=== PATIENT | male | born 1960 | race African-American/Black ===

== ENCOUNTER → 2018-03-30 06:44 | Outpatient (CLI) | payer BC, SELFPAY ==
--- NOTE | 2018-03-30 06:48 | CT_ITS ---
STUDY: CT CHEST WITHOUT CONTRAST REASON FOR EXAM: Male, 57 years old. Tobacco abuse. RADIATION DOSAGE (If Supplied By Facility): CTDIvol = ( 3.02 ) mGy, DLP = ( 108.72 ) mGycm TECHNIQUE: Transaxial imaging was performed without the administration of intravenous contrast material. Individualized dose optimization techniques were used for this CT. COMPARISON: None. FINDINGS: This is a limited low-dose screening exam. There is marked hyperexpansion of the lungs consistent with COPD. No infiltrates. No suspicious nodules. No effusions. Very limited evaluation of the soft tissues shows no gross acute abnormality. Negative appearance of the skeletal structures. CT/Chest without Contrast IMPRESSION: Screening exam shows COPD and no suspicious nodules or acute chest disease. Electronically Signed: Darius Moreno MD at 14:59 EDT , Service support ,
== END ==
PROVIDERS: Family Provider Internal Medicine; PCP Internal Medicine
DX: R63.4 Abnormal weight loss (principal); Z72.0 Tobacco use
CPT/HCPCS: 71250

== ENCOUNTER 2019-11-18 10:01 | Emergency (ER) | payer BC, SELFPAY ==
[2019-11-18 10:03] VITALS: BP 177/94; PULSE 80; RESP 17; TEMP 36.7; O2SAT 94; BMI 23.1
--- NOTE | 2019-11-18 10:18 | ED.DCSUM_ITS ---
- ER Visit Summary Date of Service: 11/18/19 Chief Complaint: Right lateral neck and posterior shoulder pain History of Present Illness: The patient is a 59 M history of diabetes but that he does not check nor take his medications. Patient states 2 weeks ago in the morning he woke up and had discomfort in his right lateral neck and posterior shoulder. He thinks is musculoskeletal. He thinks he slept on it awkwardly. He denies any injury or trauma. He denies any weakness or numbness. He is never had neck or back surgery. Pain is slightly worse with movement of his neck and shoulder. Physical Examination: Middle-aged male no acute distress vital signs stable afebrile. H EENT exam unremarkable. Smell of tobacco. Neck trachea midline no lymphadenopathy. Normal range of motion. His right paracervical soft tissue musculature is tender to palpation. As is his upper back the muscles between the thoracic spine and the shoulder blade. Lungs clear to auscultation. Heart regular rhythm no murmur. Abdomen soft and nontender. Extremities moving all 4. Neurovascular intact. 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 Normal radial pulse in the right wrist. Normal range of motion. Says a slightly increases his discomfort in his neck and upper back. Neurologically is awake and alert with no focal motor or sensory deficits. Test Results: bgt shows Emergency Department Course and Treatment: History and exam are consistent with muscle strain and spasm of his neck and trapezius. He does not need any imaging. There is been no trauma. He will be treated with p.o. Valium. Motrin. He and I discussed he needs to pay attention to his diabetes and take his medications as prescribed. He also needs to stop smoking. We will obtain a DVT. Treatment Plan: Valium 5 to 10 mg every 8 as needed neck and upper back pain. Motrin. Follow-up with his doctor. Stop smoking. Restart his diabetic meds. Disposition: Discharge Impression: Acute neck and upper back pain secondary to muscle strain and spasm Tobacco abuse Noncompliant with diabetic medications This note was generated with Media [employer] software. It may contain incorrect words, spelling, and punctuation that were not noted in review of the chart prior to signing ED Disposition - Plan for ED Patient: Referrals: Latanya Moon MD [Primary Care Provider] -
--- NOTE | 2019-11-18 10:22 | ED.DEP ---
ED Disposition - Plan for ED Patient: Disposition: Home or Assisted Living Instructions: Muscle Spasm Prescriptions: Diazepam [Valium] 5 mg PO Q6H PRN PRN #14 tab PRN Reason: Muscle Spasm Prescription Printed Referrals: Latanya Moon MD [Primary Care Provider] - 1 Week if not improving Additional Instructions: Valium 5 to 10 mg every 6 - 8 hours as needed for neck and back muscle spasm. Ice, warm bath and massage. Motrin for pain. Need to start taking care of your diabetes. Take your blood sugars at least once if not twice or more daily. Refill your diabetic meds. Need to stop smoking !!
[2019-11-18] MEDS: diazePAM 5 MG Tablet 10 MG PO (10:24)
[2019-11-18 10:31] VITALS: BP 155/87; PULSE 72; RESP 16; O2SAT 95
[2019-11-18 10:31] LABS: Bedside Glucose 238 mg/dL (70-110)
--- NOTE | 2019-11-18 10:31 | ED.RN ---
REVIEWED D/C INSTRUCTIONS, FOLLOW UP CARE, PRESCRIPTIONS, AND S/S THAT WOULD WARRANT A RETURN TO THE ED WITH PT. PT VERBALIZED AN UNDERSTANDING AND DENIES FURTHER QUESTIONS FOR THIS RN. PT SKIN WARM/DRY, RESP EVEN AND UNLABORED, PT A&O X 3, NO DISTRESS NOTED. PT AMBULATED OUT OF ED, GAIT STEADY.
== END 2019-11-18 10:33 | disposition home or self-care (01) ==
LOC: ED 10:26
PROVIDERS: Emergency Provider Emergency Medicine; PCP Internal Medicine; Referring Provider Internal Medicine
DX: S16.1XXA Strain of muscle, fascia and tendon at neck level, initial encounter (principal); M62.830 Muscle spasm of back; M54.2 Cervicalgia; M54.9 Dorsalgia, unspecified; E11.9 Type 2 diabetes mellitus without complications; Z72.0 Tobacco use; Z91.14 Patient's other noncompliance with medication regimen
CPT/HCPCS: 82962; 99283

== ENCOUNTER 2019-11-19 12:36 | Emergency (ER) | payer BC, SELFPAY ==
[2019-11-18 10:03] VITALS: BMI 23.1
[2019-11-19 12:39] VITALS: BP 173/98; PULSE 80; RESP 17; TEMP 36.8; O2SAT 97; BMI 23.7
--- NOTE | 2019-11-19 12:55 | ED.VIS.GEN ---
History of Present Illness Chief Complaint: Weakness Detail of Chief Complaint: Right-sided neck and shoulder pain Informant: Patient Onset: Days Context: Sudden Onset Timing: Continuous Quality: Pain Location: Right paracervical and shoulder Current Severity: Mild Maximum Severity: Moderate Worsened by: Movement Relieved by: Nothing Associated Symptoms: Denies paresthesia, anesthesia or motor weakness Narrative: Patient is a 59-year-old xhjzp-oyed-tjhnzjul male who presents with persistent pain. He was prescribed Valium and opiate analgesia. He was told by physician yesterday that if this did not work he could get a stronger muscle action. Patient was informed Valium is considered a good muscle accident. The other medicines are not good muscle actions and are not recommended for use in patients 55 years or older. He denies paresthesia, anesthesia or motor weakness. He denies fever, chills night sweats. He states he is not able to go to work. Prior similar symptoms: Yes Recent Illness/Hospitalization: Yes - Past Medical History (1) Type 2 diabetes mellitus Status: Acute Past Medical History - Allergies and Home Meds Allergies/Adverse Reactions: Allergies No Known Allergies Allergy (Verified 11/19/19 12:36) Primary Care Physician: Latanya Moon MD [Primary Care Provider] - Lives: Alone Smoking Status: Current every day smoker Alcohol: Rare Drugs: None Review of Systems General: Denies: Chills, Fever, Malaise, Sweats, Weight loss ENT: Denies: Bilateral ear pain, Rhinorrhea, Sore throat Cardiovascular: Denies: Chest pain, Palpitations Respiratory: Denies: Dyspnea, Cough, Dyspnea on exertion Gastrointestinal: Denies: Nausea, Vomiting Musculoskeletal: Reports: Neck pain, Extremity Pain. Denies: Myalgias, Arthralgias, Back pain, Swelling Skin: Denies: Rash, Wounds Neurological: Denies: Headache, Weakness, Parasthesia, Numbness Hematologic: Denies: Easy bruising, Easy bleeding Physical Exam Vital Signs/Narrative: Vital Signs Temp Pulse Resp BP Pulse Ox 11/19/19 12:39 98.2 F 80 17 173/98 H 97 Inital Vital Signs reviewed: Yes General: Well nourished, Well developed, No Acute Distress Head: Normocephalic, Atraumatic. Negative for: Trauma, Tenderness Eyes: Perrl, EOMI. Negative for: Pale conjunctiva ENT: Moist mucous membranes, No rhinorrhea, TM's clear Neck: Supple, No lymphadenopathy, No JVD, - - With rotation to the right and left. Worse to the right. Flexion also causes him discomfort. There is pain to palpation over the right paracervical region.. Negative for: Nontender Cardiovascular: Regular rate, Regular rhythm, No murmurs, Normal S1, Normal S2 Respiratory: No distress, CTA bilaterally Extremities: Nontender, No edema, - - Axillary, median, radial and ulnar function intact. Skin: Normal color, No rash, No Trauma. Negative for: Cyanosis, Diaphoresis, Jaundice Neurological: Alert, Oriented x3, Cranial nerves II-XII grossly intact, Normal Strength, Normal Sensation, Normal DTR - Bicep, brachialis and triceps reflex are 2+ and symmetric. Psychological: Depressed Diagnostic/Tx/Re-eval - Medical Decision Making Was informed the medication he was prescribed yesterday is appropriate for his diagnosis. There is nothing else to offer. Recommended ice. ED Disposition - Plan for ED Patient: Disposition: Home or Assisted Living Diagnosis: Neck and shoulder pain Instructions: NECK PAIN, No Trauma Referrals: Latanya Moon MD [Primary Care Provider] - 3-5 Days if not improving
[2019-11-19 15:00] LABS: Bedside Glucose 219 mg/dL (70-110)
== END 2019-11-19 13:15 | disposition home or self-care (01) ==
LOC: ED 13:10
PROVIDERS: Emergency Provider Emergency Medicine; PCP Internal Medicine
DX: M54.2 Cervicalgia (principal); M25.511 Pain in right shoulder; E11.9 Type 2 diabetes mellitus without complications; Z72.0 Tobacco use; Z79.84 Long term (current) use of oral hypoglycemic drugs
CPT/HCPCS: 82962; 99282

== ENCOUNTER 2019-11-29 15:10 | Emergency (ER) | payer BC, SELFPAY ==
[2019-11-29 15:11] VITALS: BP 175/108; PULSE 63; RESP 14; TEMP 36.8; O2SAT 93; BMI 23.3
--- NOTE | 2019-11-29 15:53 | ED.DCSUM_ITS ---
- ER Visit Summary Date of Service: 11/29/19 Chief Complaint: Atraumatic right posterior shoulder soft tissue discomfort. History of Present Illness: The patient is a 59 M past medical history of awz-vmorhyk-aimqkysnb diabetes. Patient states for about 2 weeks has had gradual onset of right posterior shoulder discomfort. No other symptoms. Was seen in emergency department started on Valium without significant relief. He denies any falls or trauma. He denies any chest pain or shortness of breath. N o fevers or chills. No weight loss. No weakness of his upper or lower extremities. No numbness. He is not been hospitalized nor he really had this before. Nothing particularly makes it better or worse other than turning his head. Physical Examination: Middle-aged male no acute distress vital signs are stable afebrile. H EENT exam unremarkable. Neck right trapezius tenderness between his spine and his shoulder blade. There is no ecchymosis or bruising. He has normal flexion-extension and rotation of his neck. Says it does increase his discomfort to rotate his neck to the right. There is no swelling or bruising. Lungs clear to auscultation bilaterally. Heart regular rhythm no murmur. Abdomen is soft nontender normal bowel sounds no peritoneal signs. Extremities moves all 4. Neurovascular intact. Normal venetian blind maker strength and dorsi and plantar flexion bilaterally. Test Results: noner Emergency Department Course and Treatment: Seems like musculoskeletal pain. He has no other symptoms or findings on exam that would make me want any testing at this time. No imaging. Treatment Plan: He will be started on Skelaxin. Motrin. Hot shower warm bath. Massage and follow-up. Disposition: Discharge Impression: Musculoskeletal neck pain This note was generated with [employer] dictation software. It may contain incorrect words, spelling, and punctuation that were not noted in review of the chart prior to signing ED Disposition - Plan for ED Patient: Referrals: Latanya Moon MD [Primary Care Provider] -
--- NOTE | 2019-11-29 15:57 | DCINST.ED_ITS ---
ED Disposition - Plan for ED Patient: Disposition: Home or Assisted Living Instructions: Neck Sprain/Strain Prescriptions: Metaxalone [Skelaxin] 800 mg PO 4X/DAY #20 tab Transmission Status: Pending to [facility] #30 Referrals: Latanya Moon MD [Primary Care Provider] - 1 Week if not improving Additional Instructions: Shower, warm bath, massage. Motrin for pain and inflammation. Skelaxin as a muscle relaxant. Follow-up with your doctor if not improving.
[2019-11-29 16:07] VITALS: RESP 18
== END 2019-11-29 16:20 | disposition home or self-care (01) ==
LOC: ED 16:16
PROVIDERS: Emergency Provider Emergency Medicine; PCP Internal Medicine
DX: M54.2 Cervicalgia (principal); E11.9 Type 2 diabetes mellitus without complications
CPT/HCPCS: 99282

== ENCOUNTER → 2019-12-05 04:51 | Outpatient (CLI) | payer BC, SELFPAY ==
[2019-11-29 15:11] VITALS: BMI 23.3
--- NOTE | 2019-12-05 05:06 | RAD_ITS ---
HISTORY: NKI C/O RT SIDED NECK PAIN WITH PAIN RADIATING INTO RT ARM X 3 WEEKS TECHNIQUE: Cervical spine 5 views Number of images including paperwork: 6 COMPARISON: None FINDINGS: VERTEBRAE: No acute fracture. VERTEBRAL ALIGNMENT: No traumatic subluxation. Straightening of the cervical spine. DISKS AND JOINTS: Minimal discogenic degenerative changes at C5-6 and C6-7. SOFT TISSUES: Unremarkable paraspinous soft tissues. RAD/Cerv Spine 4 or 5 Views IMPRESSION: 1. No acute osseous abnormality. 2. Loss of normal cervical lordosis may be related to positioning or muscle spasm. at 0550 Reported and signed by: Jazmín Levy MD Electronically Signed: Jazmín Levy MD at 5:50 EST Tel , Service support ,
== END ==
LOC: RAD 04:54
PROVIDERS: PCP Internal Medicine; Visit Provider Chiropractor
DX: S13.4XXA Sprain of ligaments of cervical spine, initial encounter (principal)
CPT/HCPCS: 72050

== ENCOUNTER 2020-09-21 07:13 | Emergency (ER) | payer BC, SELFPAY ==
[2020-09-21 07:14] VITALS: BP 177/95; PULSE 72; RESP 16; TEMP 36.3; O2SAT 98; BMI 22.4
--- NOTE | 2020-09-21 07:38 | ED.DCSUM_ITS ---
History of Present Illness Chief Complaint: Bite Informant: Patient Onset: Month(s) Maximum Severity: Mild Narrative: The patient presents complaining of a circular red irritated area to the right hip that has had for a month or two, he has history of diabetes is well controlled he has no other complaints, he eats indicates the area itches quite a bit, he has no history of MRSA skin infections or skin issues this is a single isolated area that has persisted, no trauma to the area, he has not seen his providers. He mentioned the above to a friend who told him he could have spiders growing under his skin he should be seen, he has no history of any exposure to any type of insect, he is otherwise health is been very good no other complaints again no trauma Past Medical History - Allergies and Home Meds Allergies/Adverse Reactions: Allergies No Known Allergies Allergy (Verified 09/21/20 07:16) Primary Care Physician: Latanya Moon MD [Primary Care Provider] - Past Medical History: - Smoking Status: Current every day smoker Review of Systems ROS: - Beatties is well controlled General: Denies: Chills, Fever, Sweats Eyes: Denies: Visual changes - bilaterally, Diplopia ENT: Denies: Rhinorrhea, Sore throat Cardiovascular: Denies: Chest pain, Palpitations Respiratory: Denies: Dyspnea, Cough, Dyspnea on exertion Gastrointestinal: Denies: Abdominal pain, Nausea, Vomiting, Diarrhea, Melena, Hematochezia Genitourinary: Denies: Dysuria, Hematuria, Frequency Musculoskeletal: Denies: Back pain, Extremity Pain Skin: Reports: Rash. Denies: Wounds Neurological: Denies: Headache, Weakness, Numbness Physical Exam Vital Signs/Narrative: Vital Signs Temp Pulse Resp BP Pulse Ox 09/21/20 07:14 97.4 F L 72 16 177/95 H 98 General: Well nourished, Well developed, No Acute Distress Head: Normocephalic, Atraumatic Eyes: Perrl, EOMI ENT: Moist mucous membranes, No rhinorrhea Neck: Supple, Nontender Cardiovascular: Regular rate, Regular rhythm, No murmurs Respiratory: No distress, CTA bilaterally, Chest nontender Abdomen: Soft, Nontender, Nondistended, Normal bowel sounds Back: Nontender, Normal Inspection Extremities: Nontender, No edema Skin: Normal color, - - To the area of the right hip he has a circular area that is 2 cm soft and flat not warm not fluctuant slightly red there is no signs of any obvious infection or acute issue he is walking around the emergency room without difficulty I do not notice any other skin lesions Neurological: Alert, Oriented x3, Cranial nerves II-XII grossly intact, Normal Strength, Normal Sensation Psychological: Normal affect, Normal Mood Diagnostic/Tx/Re-eval - Medical Decision Making I had a long conversation with the patient this area is itchy he has had it for a month or two, he began to be concerned when a friend told him that he could have spiders growing under his skin, he has had no exposures to any kind of insects, I explained this does not require I&D given all the above his physical exam the duration of be started on Bactrim Lotrisone cream he will follow-up with his providers in a few days and return for change in symptoms Home stable Final impression nonspecific pruritic skin lesion right lateral thigh 1 to 2- month ED Disposition - Plan for ED Patient: Diagnosis: Skin lesion of right leg Instructions: Cellulitis Prescriptions: Smz/Tmp Ds [Bactrim Ds] 1 tab PO BID #14 tab Prescription Printed Clotrimazole/Betamethasone [Lotrisone] 1 applic TOPICAL BID 14 Days #1 tube Prescription Printed Referrals: Latanya Moon MD [Primary Care Provider] -
[2020-09-21 07:40] VITALS: O2SAT 99
[2020-09-21] MEDS: Smz/Tmp Ds Tablet 1 TABLET PO (07:53)
[2020-09-21 07:56] VITALS: BP 155/75
== END 2020-09-21 07:56 | disposition home or self-care (01) ==
LOC: ED 07:46
PROVIDERS: Emergency Provider Emergency Medicine; PCP Internal Medicine
DX: L98.9 Disorder of the skin and subcutaneous tissue, unspecified (principal); F17.200 Nicotine dependence, unspecified, uncomplicated; E11.9 Type 2 diabetes mellitus without complications; Z79.84 Long term (current) use of oral hypoglycemic drugs
CPT/HCPCS: 99283

== ENCOUNTER 2020-12-31 07:31 | Day surgery (SDC) | payer BC, SELFPAY ==
[2020-12-31] VITALS (7 sets, daily range): BP systolic 113–152; BP diastolic 62–94; PULSE 59–88; RESP 16–18; TEMP 36.1–36.7; O2SAT 95–100; BMI 22.5
--- NOTE | 2020-12-31 07:30 | HP.PCM_ITS ---
History and Physical Date of Admission: 12/31/20 HISTORY AND PHYSICAL Edin Bedolla 1960 REFERRING PROVIDER: Barb Campos ([facility]), KENDELL CHIEF COMPLAINT: Colorectal cancer screening HPI: The patient is a 60 year old male referred for endoscopy. No family history of colon issues. The patient denies any change in bowel habits, weight changes, blood in stools, black tarry stools or abdominal pain. The patient notes no upper GI complaints. Edin has undergone prior endoscopy. The patient was seen by Dr. Vallejo for his first screening colonoscopy 07/29/11. The procedure report has been reviewed and findings as follows: Findings: Internal hemorrhoids were found, and they were small. The sigmoid colon was moderately tortuous. The exam was otherwise normal throughout the examined colon.There is no endoscopic evidence of polyps in the entire colon. I have reviewed the procedure with the patient. Dr. Vallejo recommended ten year screening. PAST MEDICAL HISTORY Internal hemorrhoids without mention of complication Type II or unspecified type diabetes mellitus without mention of complication, uncontrolled Unspecified essential hypertension Urinary calculus, unspecified Renal stones PAST SURGICAL HISTORY COLONOSCOP W/ OR W/O [facility] SPEC 07/29/11 FRAGMENTING/KIDNEY STONE 02/04/2005 Lithotripsy/also needed stint CURRENT MEDICATIONS atorvastatin (LIPITOR) 40 mg tablet Take 1 tablet by mouth once daily. metFORMIN ER (GLUCOPHAGE XR) 500 mg 24 hr tablet Take 4 tablets by mouth every morning. glimepiride (AMARYL) 4 mg tablet Take 1 tablet by mouth daily with breakfast. varenicline (CHANTIX aspirin, enteric coated (ADULT LOW DOSE ASPIRIN) 81 mg EC tablet losartan (COZAAR) 25 mg tablet Take 1 tablet by mouth once daily. ALLERGIES: Triamterene-Hydrochlorothiazid PERSONAL HISTORY: Tobacco Use Current Every Day Smoker Packs/day: 1.00 Types: Cigarettes Smokeless tobacco: Never Used Substance Use Topics Alcohol use: Yes Comment: beer at times Drug use: No FAMILY HISTORY: Hypertension Mother at age 56-stroke Cancer Father prostate/ at age 64 Stroke Maternal Aunt hypertension Stroke Maternal Aunt hypertension REVIEW OF SYMPTOMS: General - denies fevers, denies weight loss, denies anorexia, denies fatigue Cardiovascular - denies chest pain, denies heart palpitations, denies history of heart attack Pulmonary - denies shortness of breath, denies coughing up blood, denies breathing difficulties, denies chronic cough. Gastrointestinal - denies blood in stools, denies abdominal pain, denies chronic constipation, denies chronic diarrhea, denies acid indigestion/heartburn, denies swallowing problems, denies history of peptic ulcers Neurological - denies numbness/weakness of extremities, denies seizures, denies history of head trauma, denies history of stroke Genitourinary - denies blood in urine, denies burning with urination, denies history of kidney infections/failure, denies bladder problems, denies prostate problems Hematological - denies spontaneous/prolonged bleeding, denies history of blood transfusions, denies history of deep venous thromboses and/or pulmonary emboli, denies easy bruising Skin - denies nonhealing skin wounds, denies history of skin cancer, denies rashes Musculoskeletal - denies new or worsening muscle, joint or back pain. Endocrine - oral meds for diabetes Psychological ? denies anxiety or depression PHYSICAL EXAMINATION: General: The patient is 60 year old male, well nourished, well hydrated in no acute distress. The patient is oriented to time, place, and person. VITALS: Blood pressure 132/78, pulse 72, height 200.7 cm (6' 7), weight 80.4 kg (177 lb 3.2 oz), SpO2 95 %. HEENT: Normal cephalic, ataumatic, pupils are equally round, sclera are anicteric. Neck has no masses, asymmetry or lymphadenopathy. Respiratory: Clear to auscultation and percussion. Normal respiratory excursion and pattern. Cardiac: Examination is regular rate and rhythm. Normal S1/S2 Abdominal exam: Soft, nontender, with no palpable masses. No hepatosplenomegaly. No palpable hernias. Extremities: no clubbing, cyanosis or edema. IMPRESSION: Colorectal cancer screening PLAN: Will plan for lower endoscopy. We discussed the risks and benefits of the planned endoscopy. I have informed the patient that complications can occur including failure to complete the endoscopy and perforation. The patient had the opportunity to ask questions concerning the planned endoscopy. My staff has also explained the procedure to the patient in understandable terms and has given the patient printed material concerning the procedure. The patient freely consents to surgery. I plan to use NuLytely bowel preparation, per his request. I have explained that we may not be able to get it due to limited availability. We will plan for [facility]. This is due to the tortuous colon. The patient insists on [facility] due to transportation issues. Diagnoses: Colorectal cancer screening Paty Fermin RN RADIO NEWS WRITER.CHILD'S NURSE
[2020-12-31] MEDS: Lactated Ringers 1,000 ML 125 ML IV (08:07)
[2020-12-31 08:10] LABS: Bedside Glucose 120 mg/dL (70-110)
--- NOTE | 2020-12-31 09:00 | OP.CCLET_ITS ---
12/31/2020 Latanya Moon [address] [place] [address] Re : Colonoscopy procedure for Edin Bedolla Dear Dr. Moon This procedure was performed on Thursday, December 31, 2020. My impressions and recommendations are as follows: Impressions : - Non-bleeding internal hemorrhoids. - No specimens collected. Recommendations : - Repeat colonoscopy in 10 years for screening purposes. - Return to primary care physician PRN. - Continue present medications. My findings are described in the full procedure note, which is enclosed. If I can be of further assistance, please feel free to contact me at Doctor phone number(s): , Work: . Sincerely, MD Keri Welch MD 12/31/2020 8:59:54 AM This report has been signed electronically.
--- NOTE | 2020-12-31 09:00 | OP.COLON_ITS ---
Patient Name: Edin Bedolla Procedure Date: 12/31/2020 8:22 AM Date of : 1960 Age: 60 Procedure: Colonoscopy Indications: Screening for colorectal malignant neoplasm Providers: Keri Arguelles MD Referring MD: Latanya Moon Medicines: See the Anesthesia note for documentation of the administered medications Patient Profile: Refer to note in patient chart for documentation of history and physical. Last Colonoscopy: 2010. Complications: No immediate complications. Procedure: Pre-Anesthesia Assessment: - see anesthesia note After I obtained informed consent, the scope was passed under direct vision. Throughout the procedure, the patient's blood pressure, pulse, and oxygen saturations were monitored continuously. The pediatric colonoscope was introduced through the anus and advanced to the cecum, identified by the appendiceal orifice, IC valve and transillumination. The colonoscopy was performed without difficulty. The patient tolerated the procedure well. The quality of the bowel preparation was adequate. Scope In: 8:31:19 AM Scope Withdrawal Time 0 hours 9 minutes 32 seconds Scope Out: 8:55:35 AM Total Procedure Duration Time 0 hours 24 minutes 16 seconds Findings: The perianal and digital rectal examinations were normal. Non-bleeding internal hemorrhoids were found. Impression: - Non-bleeding internal hemorrhoids. - No specimens collected. Recommendation: - Repeat colonoscopy in 10 years for screening purposes. - Return to primary care physician PRN. - Continue present medications. Procedure Code(s): --- Professional --- G0121, Colorectal cancer screening; colonoscopy on individual not meeting criteria for high risk Diagnosis Code(s): --- Professional --- K64.8, Other hemorrhoids Z12.11, Encounter for screening for malignant neoplasm of colon CPT copyright 2017 [employer]. All rights reserved. The codes documented in this report are preliminary and upon professional fee coder review may be revised to meet current compliance requirements. MD Keri Welch MD 12/31/2020 8:59:54 AM This report has been signed electronically. Number of Addenda: 0 Note Initiated On: 12/31/2020 8:22 AM
== END 2020-12-31 09:38 | disposition home or self-care (01) ==
LOC: EN 07:34 → AC 07:34
PROVIDERS: PCP Internal Medicine; Referring Provider Internal Medicine; Visit Provider Surgery
PROC: 0DJD8ZZ Inspection of Lower Intestinal Tract, Via Natural or Artificial Opening Endoscopic (ICD-10-PCS; CPT 45378; principal; 2020-12-31 08:40)
DX: Z12.11 Encounter for screening for malignant neoplasm of colon (principal); Z20.828 Contact with and (suspected) exposure to other viral communicable diseases; K64.8 Other hemorrhoids; E11.9 Type 2 diabetes mellitus without complications; I10 Essential (primary) hypertension; Z79.84 Long term (current) use of oral hypoglycemic drugs; Z79.899 Other long term (current) drug therapy; F17.210 Nicotine dependence, cigarettes, uncomplicated
CPT/HCPCS: 45378; 82962; 87426; C9803; J7120

== ENCOUNTER 2021-07-21 10:36 | Inpatient (IN) | payer BC, SELFPAY ==
[2021-07-21] VITALS (16 sets, daily range): BP systolic 118–147; BP diastolic 63–79; PULSE 66–92; RESP 18–29; TEMP 36.5–37.2; O2SAT 86–96; BMI 23.3; BMI 21.6
--- NOTE | 2021-07-21 11:25 | EKG12_ITS ---
Test Reason : SOB Blood Pressure : / mmHG Vent. Rate : 085 BPM Atrial Rate : 085 BPM P-R Int : 170 ms QRS Dur : 080 ms QT Int : 340 ms P-R-T Axes : 063 062 042 degrees QTc Int : 404 ms Normal sinus rhythm Normal ECG Confirmed by MARIO HARDIN, NASREEN ([id number]), telegraph editor HOSSEIN KULKARNI ([id number]) on 07/27/2021 9:29:58 A M Referred By: AUGUST Confirmed By:RIGO MARTIN MD
--- NOTE | 2021-07-21 11:26 | EX.ED.DYSGE1 ---
HPI History of Present Illness Chief Complaint: Fever Narrative Narrative: 61-year-old male with history of diabetes and undiagnosed COPD presenting with shortness of breath and cough. He states he had a fever at the urgent care today. He was sent over here to the ER for a low pulse ox at 93%. Patient is stating that he has some chest tightness. He is a smoker. He states he has been told he has COPD before however he states this is not made a formal diagnosis. Patient is a smoker. He has been eating and drinking normally. He is making normal urine and stool. He does complain of a headache. Denies nausea or vomiting. No loss of taste or smell. PFSH PFSH Home Medications metformin 500 mg PO DAILY 11/18/19 [History Last Taken 2 Days Ago ~07/19/21] Allergy/AdvReac Type Severity Reaction Status Date / Time No Known Allergies Allergy Verified 07/21/21 10:37 Social History Smoking Status: Current every day smoker tobacco type: cigarettes ROS ROS ED Constitutional Constitutional ED: Reports chills and fever(s) Eyes Eyes: Denies blurry vision or diplopia ENT ENT ED: Denies rhinorrhea or sore throat Cardiovascular Cardiovascular: Reports chest pain; Denies palpitations Respiratory/Chest Respiratory/Chest: Reports cough and dyspnea Gastrointestinal Gastrointestinal: Denies abdominal pain, nausea or vomiting Genitourinary Genitourinary ED: Denies dysuria or hematuria Musculoskeletal Musculoskeletal: Reports myalgias; Denies back pain or neck pain Integumentary Denies Abrasions or rash Neurologic Neurologic: Reports headache(s); Denies paresthesias or weakness EXAM Physical Exam Const Vital Signs: 07/21/21 10:37 07/21/21 10:46 07/21/21 11:00 Temperature 98.6 F 98.6 F Temperature Source Temporal Temporal Pulse Rate 92 92 Respiratory Rate 18 18 Respiratory Effort Normal Non-Labored Respiratory Pattern Normal Blood Pressure 138/75 H 138/75 H Blood Pressure Mean 96 96 Pulse Ox 93 93 Oxygen Delivery Method Room Air Room Air Oxygen Flow Rate (L/min) 07/21/21 11:50 07/21/21 11:55 07/21/21 12:10 Temperature 97.7 F L Temperature Source Oral Pulse Rate 79 78 Respiratory Rate 24 H 20 H Respiratory Effort Respiratory Pattern Tachypnea Blood Pressure 118/75 Blood Pressure Mean 89 Pulse Ox 93 86 Oxygen Delivery Method Room Air Room Air Oxygen Flow Rate (L/min) 07/21/21 12:12 07/21/21 12:39 07/21/21 12:40 Temperature 97.8 F Temperature Source Oral Pulse Rate 78 Respiratory Rate 22 H 29 H Respiratory Effort Respiratory Pattern Blood Pressure 138/74 H Blood Pressure Mean 95 Pulse Ox 94 88 93 Oxygen Delivery Method Nasal Cannula Room Air Nasal Cannula Oxygen Flow Rate (L/min) 2 2 Positive well nourished General Appearance ED: NAD; Negative for pallor HEENT Reports moist mucous membranes Negative for trauma Eyes PERRL and EOMs intact bilaterally Chest Wall inspection of chest normal and palpation of chest normal Resp normal respiratory effort Auscultation: wheezes scattered wheezes Cardio regular rate GI normal to inspection, nondistended, normoactive bowel sounds Neuro oriented x3, CN's II-XII intact bilaterally and no sensory deficits noted Sensorium / Orientation: alert Motor Exam: strength 5/5 throughout Psych mental status grossly normal Skin General Skin Exam: Negative for jaundice or pallor MDM MDM MDM Narrative Medical decision making narrative: Patient presented with Covid symptoms and has had a low pulse ox at 92% at urgent care. Here he is 93%. He is wheezing on initial examination. He did test positive for COVID-19 in the ED today. Patient was given breathing treatments and Solu-Medrol and on reevaluation on room air the patient dropped to 86%. CBC shows no leukocytosis and patient is not lymphopenic. Renal function and electrolytes are normal. LFTs are normal. D-dimer negative. Lactic acid normal. Troponin is 6. Procalcitonin negative. EKG on my interpretation shows a normal sinus rhythm with a ventricular rate of 85 bpm. Chest x-ray on my interpretation shows no acute cardiopulmonary process and the radiologist does agree. Patient's vital signs have remained stable except for needing oxygen. Given the patient was on day 2 of symptoms and is already hypoxic I think he would benefit from inpatient treatment. Discussed with hospitalist for admission. Impression: 1. COVID-19 meningitis 2. Acute hypoxic respiratory failure Lab Data Attestation: I reviewed the patient's lab results. Labs: Laboratory Results - last 24 hr 07/21/21 07/21/21 07/21/21 10:54 10:54 10:54 WBC 5.4 RBC 4.83 Hgb 13.7 Hct 42.6 MCV 88.2 MCH 28.4 MCHC 32.2 RDW Std Deviation 45.8 H RDW Coeff of Abe 14.1 Plt Count 175 MPV 11.4 Immature Gran % (Auto) 0.400 Neut % (Auto) 58.5 Lymph % (Auto) 28.9 [place] % (Auto) 11.4 H Eos % (Auto) 0.2 Baso % (Auto) 0.6 Absolute Neuts (auto) 3.2 Absolute Lymphs (auto) 1.55 Nucleated RBC % 0 D-Dimer Quant (PE/DVT) Sodium 137 Potassium 3.6 Chloride 99 Carbon Dioxide 30.0 Anion Gap 8 BUN 7 Creatinine 1.06 Estim Creat Clear Calc 86.16 Est GFR (MDRD) Af Amer 92 Est GFR (MDRD) Non-Af 76 BUN/Creatinine Ratio 6.6 L Glucose 170 H Lactic Acid Calcium 8.3 L Total Bilirubin 0.30 AST 17 ALT 15 L Alkaline Phosphatase 80 Troponin I High Sens 6 Total Protein 7.7 Albumin 3.6 Globulin 4.1 Albumin/Globulin Ratio 0.9 Procalcitonin 0.09 07/21/21 07/21/21 11:36 11:36 WBC RBC Hgb Hct MCV MCH MCHC RDW Std Deviation RDW Coeff of Abe Plt Count MPV Immature Gran % (Auto) Neut % (Auto) Lymph % (Auto) [place] % (Auto) Eos % (Auto) Baso % (Auto) Absolute Neuts (auto) Absolute Lymphs (auto) Nucleated RBC % D-Dimer Quant (PE/DVT) 0.35 Sodium Potassium Chloride Carbon Dioxide Anion Gap BUN Creatinine Estim Creat Clear Calc Est GFR (MDRD) Af Amer Est GFR (MDRD) Non-Af BUN/Creatinine Ratio Glucose Lactic Acid 1.0 Calcium Total Bilirubin AST ALT Alkaline Phosphatase Troponin I High Sens Total Protein Albumin Globulin Albumin/Globulin Ratio Procalcitonin Radiography Diagnostic Testing: Radiology Impression Chest X-Ray 07/21/21 12:22 IMPRESSION: Stable, nonacute portable x-ray examination of the chest. Electronically Signed: Tim Cody MD ([place]) at 12:49 EDT , Service support , Discharge Plan Triage Chief Complaint: Fever ED Provider: Michael Cruz Dx/Rx/DC Orders Prescriptions: No Action metformin 500 MG tablet extended release 24 hr 500 mg PO DAILY RF: 0 Primary Care Provider: Latanya Moon
[2021-07-21] MEDS: Albuterol 2.5 MG/3 ML VIAL.NEB. INHALATION (11:33)
[2021-07-21] MEDS: Ipratropium/Albuterol Sulfate 3 ML AMPUL.NEB INHALATION (11:33)
[2021-07-21 11:35] LABS: Absolute Lymphocyte Count 1.55 X10^3/uL (0.83-4.51); Absolute Neutrophil Count 3.2 X10^3/uL (2.0-7.7); Basophil# 0.03 X10^3/uL; Basophil% 0.6 % (0-1); Eosinophil# 0.01 X10^3/uL; Eosinophils% 0.2 % (0-5); Hematocrit 42.6 % (40-54); Hemoglobin 13.7 g/dL (13.0-16.5); Lymphocyte # 1.55 X10^3/ul (0.83-4.51); Lymphocyte % 28.9 % (19-41); Mean Corp Hgb Conc 32.2 g/dL (32-36); Mean Corpuscular Hgb 28.4 pg (27.0-32.0); Mean Corpuscular Volume 88.2 fL (80-94); Mean Platelet Vol. 11.4 fl (6.2-12.0); Monocyte# 0.61 X10^3/uL; Monocyte% 11.4 % (0-10); NRBC Flagged by Analyzer 0 % (0-5); Neutrophil # 3.15 X10^3/uL (2.7-7.7); Neutrophil % 58.5 % (47-70); Platelet Count 175 K/mm3 (150-450); RBC Distribution Width CV 14.1 % (11.6-14.6); RBC Distribution Width SD 45.8 fl (35.1-43.9); Red Blood Count 4.83 M/mm3 (4.6-6.2); White Blood Count 5.4 K/mm3 (4.4-11.0)
[2021-07-21] MEDS: MethylPREDNISolone 125 MG/2 ML Vial IV (11:38)
[2021-07-21 11:49] LABS: ALB/GLOB Ratio 0.9 RATIO (0.9-2.4); AST(SGOT) 17 U/L (15-37); Alanine Aminotransfer ALT/SGPT 15 U/L (16-61); Albumin, Serum 3.6 g/dL (3.2-5.0); Alkaline Phosphatase 80 U/L (45-117); Anion Gap 8 (5-15); BUN 7 mg/dL (7-18); BUN/Creat Ratio 6.6 RATIO (10-20); Calcium,Total 8.3 mg/dL (8.5-10.1); Chloride 99 mmol/L (98-107); Creatinine, Serum 1.06 mg/dL (0.70-1.30); EST Glomerular Filtration Rate 76 mL/min (>60); Est Glom Filt Rate - Afr Amer 92 mL/min (>60); Estimated Creatinine Clearance 86.16 ml/min; Globulin 4.1 g/dL (2.2-4.2); Glucose 170 mg/dL (74-106); Potassium 3.6 mmol/L (3.5-5.1); Protein, Total 7.7 g/dL (6.4-8.2); Sodium Level 137 mmol/L (136-145); Troponin-I HS 6 pg/mL (3.0-78.0)
[2021-07-21] MEDS: Ondansetron 4 MG/2 ML Vial IV (11:50)
[2021-07-21 11:53] LABS: Procalcitonin 0.09 ng/mL (0.00-0.09)
[2021-07-21 11:55] LABS: D-Dimer Quantitative (DVT/PE) 0.35 FEU/ug/m (0.27-0.49)
--- NOTE | 2021-07-21 12:22 | RAD_ITS ---
STUDY: X-RAY CHEST REASON FOR EXAM: Male, 61 years old. cough TECHNIQUE: AP COMPARISON: 10/16/2012 FINDINGS: The lungs are clear and expanded. There is no demonstrated pleural abnormality. Normal size heart. Normal mediastinum and olga lidia. Normal visualized pulmonary arteries. Normal visualized aortic arch and descending thoracic aorta. Normal visualized thoracic spine. Normal visualized ribs, clavicles, and shoulders. There is no demonstrated abnormality of the visualized soft tissue structures of the upper abdomen. RAD/Chest 1 View (Portable) IMPRESSION: Stable, nonacute portable x-ray examination of the chest. Electronically Signed: Tim Cody MD ([place]) at 12:49 EDT , Service support ,
--- NOTE | 2021-07-21 12:33 | PCM.HP.STD ---
HPI - General HPI Narrative RONALD BURRELL, is a 61 M with a PMH as outlined who presents via the ED on 07/21/2021 with a complaint of shortness of breath and associated cough as well as fever and chest tightness. He went to the urgent care, where he was saturating at 92%. He was therefore sent to the ED. He doesnt have a known diagnosis of COPD, but says he was told he had COPD. He had associated wheezing and chest tightness. Patient has an extensive history of smoking. He is unvaccinated for COVID. He denies any loss of taste or smell. He tested positive for COVID. Labs and vitals showed wbc of 5.4, and Hb of 13.7, as well as platelets of 175. Chemistry was unremarkable, and D dimer wasnt elevated. CXR per my review showed acute cardiopulmonary process. He is being admitted to be managed for acute hypoxic respiratory failure due to COVID 19 infection and suspected COPD exacerbation. [facility] Home Medications metformin 500 mg PO DAILY 11/18/19 [History Last Taken Unknown] Allergy/AdvReac Type Severity Reaction Status Date / Time No Known Allergies Allergy Verified 07/21/21 10:37 Social History Smoking Status: Current every day smoker tobacco type: cigarettes Vital Signs Vital Signs Vital Signs: 07/21/21 10:37 07/21/21 10:46 07/21/21 11:00 Temperature 98.6 F 98.6 F Temperature Source Temporal Temporal Pulse Rate 92 92 Respiratory Rate 18 18 Respiratory Effort Normal Non-Labored Respiratory Pattern Normal Blood Pressure 138/75 H 138/75 H Blood Pressure Mean 96 96 Pulse Ox 93 93 Oxygen Delivery Method Room Air Room Air Oxygen Flow Rate (L/min) 07/21/21 11:50 07/21/21 11:55 07/21/21 12:10 Temperature 97.7 F L Temperature Source Oral Pulse Rate 79 78 Respiratory Rate 24 H 20 H Respiratory Effort Respiratory Pattern Tachypnea Blood Pressure 118/75 Blood Pressure Mean 89 Pulse Ox 93 86 Oxygen Delivery Method Room Air Room Air Oxygen Flow Rate (L/min) 07/21/21 12:12 Temperature Temperature Source Pulse Rate Respiratory Rate 22 H Respiratory Effort Respiratory Pattern Blood Pressure Blood Pressure Mean Pulse Ox 94 Oxygen Delivery Method Nasal Cannula Oxygen Flow Rate (L/min) 2 Weight Weight: 182 lb 5.156 oz Body Mass Index (BMI) 23.3 Physical Exam Const alert, oriented x3 and healthy appearing General Appearance: cooperative HEENT normocephalic, head/scalp atraumatic and hearing grossly normal bilaterally HEENT Narrative: dry oral mucosa. Eyes PERRL, EOMs intact bilaterally and conjunctivae normal Neck no lymphadenopathy, supple and no JVD Resp Resp Narrative: diminished breath sounds bibasally, no wheezes or crackles. On 2L of oxygen by nasal canula Cardio regular rate, regular rhythm, S1 normal heart sound, S2 normal heart sound and no murmurs GI normal to inspection, nondistended, normoactive bowel sounds, soft to palpation, non-tender and non-distended Extremity normal to inspection, full ROM and no clubbing, cyanosis or edema Peripheral Pulses: Yes pulses 2+ throughout Skin no rashes or lesions noted Neuro oriented x3, CN's II-XII intact bilaterally and moves all extremities Sensorium / Orientation: awake and alert Psych affect normal Results Lab / Micro Data Result Diagrams: 07/21/21 10:54 07/21/21 10:54 Labs: Laboratory Results - last 24 hr 07/21/21 10:54: WBC 5.4, RBC 4.83, Hgb 13.7, Hct 42.6, MCV 88.2, MCH 28.4, MCHC 32.2, RDW Std Deviation 45.8 H, RDW Coeff of Abe 14.1, Plt Count 175, MPV 11.4, Immature Gran % (Auto) 0.400, Neut % (Auto) 58.5, Lymph % (Auto) 28.9, [place] % (Auto) 11.4 H, Eos % (Auto) 0.2, Baso % (Auto) 0.6, Absolute Neuts (auto) 3.2, Absolute Lymphs (auto) 1.55, Nucleated RBC % 0 07/21/21 10:54: Sodium 137, Potassium 3.6, Chloride 99, Carbon Dioxide 30.0, Anion Gap 8, BUN 7, Creatinine 1.06, Estim Creat Clear Calc 86.16, Est GFR (MDRD) Af Amer 92, Est GFR (MDRD) Non-Af 76, BUN/Creatinine Ratio 6.6 L, Glucose 170 H, Calcium 8.3 L, Total Bilirubin 0.30, AST 17, ALT 15 L, Alkaline Phosphatase 80, Troponin I High Sens 6, Total Protein 7.7, Albumin 3.6, Globulin 4.1, Albumin/Globulin Ratio 0.9 07/21/21 10:54: Procalcitonin 0.09 07/21/21 11:36: D-Dimer Quant (PE/DVT) 0.35 07/21/21 11:36: Lactic Acid 1.0 Micro: Microbiology 07/21/21 10:54 Nasal Secretion SARS-CoV-2 Antigen (Rapid) - Final SARS-CoV-2 (COVID 19) Assessment & Plan Assessment/Plan (1) Acute respiratory failure with hypoxia: (2) COVID: PLAN: #Acute hypoxic respiratory failure due to COVID 19 pneumonia and probable COPD exacerbation Admit to [facility] with telemetry Titrate oxygen to maintain saturation above 90%. Breathing treatments with bronchodilators. D-dimer not elevated. IV Decadron 6 mg daily. Start on remdesivir. #COVID 19 pneumonia: as above #Type 2 diabetes mellitus On Metformin. Insulin sliding scale. Accu-Cheks AC at bedtime. CODE STATUS: Full code Patient counseled extensively about different types of CODE STATUS including full code, DNR CCA and DNR CCA. Patient elects to be full code. Total [id number] time 17 minutes. Charges/Coding Visit Charges Inpatient E&M: 58936 Init Hosp L3 Procedures Hospitalists Procedures: 30577 Advncd Care Plan 30 Min
--- NOTE | 2021-07-21 13:00 | NURSING ---
DR SOLANO IN WITH PATIENT
--- NOTE | 2021-07-21 13:47 | NURSING ---
MED SURG RUSS COVANIYAH 19, HYPOXIC, RESP FAILURE
[2021-07-21 15:22] LABS: Fibrinogen 372 mg/dl (203-444)
[2021-07-21 15:40] LABS: CPK Total, Creatine Kinase 206 U/L (39-308); LDH 209 U/L (87-241)
[2021-07-21 15:41] LABS: Bedside Glucose 229 mg/dL (70-110)
[2021-07-21] MEDS: 0.9% Saline Lock 10 ML Syringe IV ×2 (17:47→20:37)
[2021-07-21] MEDS: Insulin Lispro 100 UNIT/ML INSULN.PEN SC ×2 (17:48→20:36)
--- NOTE | 2021-07-21 18:33 | PCS.PANDOC ---
PANDEMIC DOCUMENTATION INITIATED: Date: 06/01/2021 Time: 190
[2021-07-21] MEDS: Enoxaparin 30 MG/0.3 ML Syringe SC (20:39)
[2021-07-21 20:56] LABS: Bedside Glucose 305 mg/dL (70-110)
[2021-07-22] VITALS (15 sets, daily range): BP systolic 140–148; BP diastolic 78–83; PULSE 59–80; RESP 18; TEMP 36.9–37.9; O2SAT 94–98
[2021-07-22 06:45] LABS: Bedside Glucose 127 mg/dL (70-110)
[2021-07-22 07:30] LABS: Absolute Lymphocyte Count 1.79 X10^3/uL (0.83-4.51); Absolute Neutrophil Count 3.3 X10^3/uL (2.0-7.7); Hematocrit 39.5 % (40-54); Hemoglobin 13.3 g/dL (13.0-16.5); Lymphocyte # 1.79 X10^3/ul (0.83-4.51); Lymphocyte % 32.5 % (19-41); Mean Corp Hgb Conc 33.7 g/dL (32-36); Mean Corpuscular Volume 86.2 fL (80-94); Mean Platelet Vol. 11.1 fl (6.2-12.0); Monocyte# 0.39 X10^3/uL; Monocyte% 7.1 % (0-10); NRBC Flagged by Analyzer 0 % (0-5); Neutrophil # 3.31 X10^3/uL (2.7-7.7); Platelet Count 157 K/mm3 (150-450); RBC Distribution Width CV 13.8 % (11.6-14.6); RBC Distribution Width SD 43.8 fl (35.1-43.9); Red Blood Count 4.58 M/mm3 (4.6-6.2); White Blood Count 5.5 K/mm3 (4.4-11.0)
[2021-07-22 07:56] LABS: ALB/GLOB Ratio 0.8 RATIO (0.9-2.4); AST(SGOT) 19 U/L (15-37); Alanine Aminotransfer ALT/SGPT 19 U/L (16-61); Albumin, Serum 3.2 g/dL (3.2-5.0); Alkaline Phosphatase 75 U/L (45-117); Anion Gap 6 (5-15); BUN 18 mg/dL (7-18); BUN/Creat Ratio 18.3 RATIO (10-20); Calcium,Total 8.6 mg/dL (8.5-10.1); Chloride 103 mmol/L (98-107); Creatinine, Serum 0.98 mg/dL (0.70-1.30); EST Glomerular Filtration Rate 83 mL/min (>60); Est Glom Filt Rate - Afr Amer 100 mL/min (>60); Estimated Creatinine Clearance 86.62 ml/min; Glucose 122 mg/dL (74-106); Potassium 3.5 mmol/L (3.5-5.1); Protein, Total 7.2 g/dL (6.4-8.2); Sodium Level 137 mmol/L (136-145)
[2021-07-22] MEDS: Enoxaparin 30 MG/0.3 ML Syringe SC ×2 (11:01→22:33)
[2021-07-22] MEDS: Acetaminophen 325 MG Tablet 650 MG PO (11:02)
[2021-07-22] MEDS: metFORMIN (XR) 500 MG Tablet PO (11:02)
[2021-07-22] MEDS: dexAMETHasone 10 MG/ML Vial 6 MG IV (11:03)
[2021-07-22] MEDS: Insulin Lispro 100 UNIT/ML INSULN.PEN SC ×3 (11:19→22:34)
--- NOTE | 2021-07-22 11:47 | PN.HOSP_ITS ---
Subjective Subjective Patient seen and examined. He feels much better today. He has no complaints. He does still look a bit weak. Review of systems is otherwise negative. He is on room air, though he is saturating 90-91% thereabouts. Objective Data Objective Data Vital Signs: Vital Signs Temp Pulse Resp BP Pulse Ox 100.2 F H 80 18 148/83 H 94 07/22/21 08:43 07/22/21 08:43 07/22/21 09:00 07/22/21 08:43 07/22/21 09:00 Oxygen Flow Rate (L/min) 3 Oxygen Delivery Method Room Air Weight: 168 lb 6.931 oz Body Mass Index (BMI) 21.6 Intake & Output: Intake and Output for Last 24 Hours 07/20/21 07/21/21 07/22/21 23:59 23:59 23:59 Intake Total 392.50 / 392.50 Output Total 400 / 400 Balance 392.50 / 392.50 -400 / -400 Lab / Micro Data Result Diagrams: 07/22/21 07:08 07/22/21 07:08 Labs: Laboratory Results - last 24 hr 07/21/21 10:54: Sodium 137, Potassium 3.6, Chloride 99, Carbon Dioxide 30.0, Anion Gap 8, BUN 7, Creatinine 1.06, Estim Creat Clear Calc 86.16, Est GFR (MDRD) Af Amer 92, Est GFR (MDRD) Non-Af 76, BUN/Creatinine Ratio 6.6 L, Glucose 170 H, Calcium 8.3 L, Total Bilirubin 0.30, AST 17, ALT 15 L, Alkaline Phosphatase 80, Troponin I High Sens 6, Total Protein 7.7, Albumin 3.6, Globulin 4.1, Albumin/Globulin Ratio 0.9 07/21/21 10:54: Procalcitonin 0.09 07/21/21 11:36: D-Dimer Quant (PE/DVT) 0.35 07/21/21 11:36: Lactic Acid 1.0 07/21/21 11:36: Fibrinogen 372 07/21/21 11:36: Lactate Dehydrogenase 209, Total Creatine Kinase 206, C-React Prot Ext Range 11.80 H 07/21/21 11:36: B-Natriuretic Peptide 19.0 07/21/21 15:35: POC Glucose 229 H 07/21/21 20:34: POC Glucose 305 H 07/22/21 06:37: POC Glucose 127 H 07/22/21 07:08: WBC 5.5, RBC 4.58 L, Hgb 13.3, Hct 39.5 L, MCV 86.2, MCH 29.0, MCHC 33.7, RDW Std Deviation 43.8, RDW Coeff of Abe 13.8, Plt Count 157, MPV 11.1, Immature Gran % (Auto) 0.400, Neut % (Auto) 60.0, Lymph % (Auto) 32.5, [place] % (Auto) 7.1, Eos % (Auto) 0.0, Baso % (Auto) 0.0, Absolute Neuts (auto) 3.3, Absolute Lymphs (auto) 1.79, Nucleated RBC % 0 07/22/21 07:08: Sodium 137, Potassium 3.5, Chloride 103, Carbon Dioxide 28.0, Anion Gap 6, BUN 18, Creatinine 0.98, Estim Creat Clear Calc 86.62, Est GFR (MDRD) Af Amer 100, Est GFR (MDRD) Non-Af 83, BUN/Creatinine Ratio 18.3, Glucose 122 H, Calcium 8.6, Total Bilirubin 0.30, AST 19, ALT 19, Alkaline Phosphatase 75, Total Protein 7.2, Albumin 3.2, Globulin 4.0, Albumin/Globulin Ratio 0.8 L Micro: Microbiology 07/21/21 10:54 Nasal Secretion SARS-CoV-2 Antigen (Rapid) - Final SARS-CoV-2 (COVID 19) Radiography Diagnostic Testing: Radiology Impression Chest X-Ray 07/21/21 12:22 IMPRESSION: Stable, nonacute portable x-ray examination of the chest. Electronically Signed: Tim Cody MD ([place]) at 12:49 EDT , Service support , Physical Exam Const alert, oriented x3, no apparent distress, average body habitus and healthy appearing General Appearance: cooperative Exam Limitations: no limitations HEENT normocephalic, head/scalp atraumatic and hearing grossly normal bilaterally Head and Scalp: normocephalic Eyes PERRL, EOMs intact bilaterally and conjunctivae normal Neck no lymphadenopathy, supple and no JVD Resp Resp Narrative: diminished breath sounds bibasally, no wheezes or crackles. On room air. Cardio regular rate, regular rhythm, S1 normal heart sound, S2 normal heart sound and no murmurs GI normal to inspection, nondistended, normoactive bowel sounds, soft to palpation, non-tender and non-distended Extremity normal to inspection, full ROM and no clubbing, cyanosis or edema Peripheral Pulses: Yes pulses 2+ throughout Skin no rashes or lesions noted Neuro oriented x3, CN's II-XII intact bilaterally and moves all extremities Sensorium / Orientation: awake and alert Psych affect normal Assessment & Plan Assessment/Plan (1) Acute respiratory failure with hypoxia: (2) COVID: PLAN: #Acute hypoxic respiratory failure due to COVID 19 pneumonia and probable COPD exacerbation * feels better today * on room air. Titrate oxygen to maintain sats >90% * continue IV decadron. Continue remdesivir * breathing treatment with bronchodilators * #Hypokalemia: resolved. #COVID 19 pneumonia: as above #Type 2 diabetes mellitus * On Metformin. Insulin sliding scale. Accu-Cheks AC at bedtime. * CODE STATUS: Full code * Charges/Coding Visit Charges Inpatient E&M: 93292 Subs Hosp L2
[2021-07-22 13:45] LABS: Bedside Glucose 197 mg/dL (70-110)
--- NOTE | 2021-07-22 17:07 | CASEMGMT ---
ALBIN ALVAREZ Assessment: Face to Face with pt for initial transition planning/care coordination assessment. ALBIN ALVAREZ introduced self and role at [facility], pt voices understanding and consents to assessment. Pt is A/O x4 and answers all questions appropriately at this time. Pt sitting up in bed on RA in no distress. Care providers, pharmacy, and demographics verified/updated. Admitting Dx: acute hypoxic resp failure due to COVID PCP: Sarai Specialists:Pt denies Preferred Pharmacy: [facility] Insurance: [place] Prescription Benefit: yes LW/HPOA: Pt states his dtr Yarely Bedolla is his DPOA and he has a LW. Pt is aware that it is not on file at [facility] and he may bring in to be scanned into pt chart. LNOK: Yarelydominic Bedolla, dtr; Marisela Child, friend Living Arrangements: Pt lives alone in a single story house with a couple of steps to enter with a rail. Pt reports being I in ADL's and denies concerns at home. Transportation: Pt drives self and denies concerns with transportation. DME/HHC/SNF: Pt denies having any DME in the home, previous HHC or SNF stays. Pt was first tested for COVID at [facility]. Pt does have family and friends who can provide him with groceries and supplies. 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 Pt drinks alcohol occasionally and smokes 1 pack of cigarettes per day. Denies any street drug or illegal drug use. Pt states no concerns with going home at time of dc. Pt states no further concerns/needs. CM to follow. Advised pt to ask CM if any further question/concerns/needs arise, voices understanding. Pt Goal: Home Plan: Home, will monitor for O2, pt on RA.
[2021-07-22 17:55] LABS: Bedside Glucose 292 mg/dL (70-110)
[2021-07-22] MEDS: 0.9% Saline Lock 10 ML Syringe IV (22:33)
[2021-07-22 23:21] LABS: Bedside Glucose 153 mg/dL (70-110)
[2021-07-23] VITALS (8 sets, daily range): BP systolic 131–145; BP diastolic 70–77; PULSE 65–84; RESP 18; TEMP 37.3–38.1; O2SAT 92–97
[2021-07-23 06:12] LABS: Absolute Lymphocyte Count 1.79 X10^3/uL (0.83-4.51); Absolute Neutrophil Count 2.8 X10^3/uL (2.0-7.7); Basophil# 0.01 X10^3/uL; Basophil% 0.2 % (0-1); Hematocrit 41.3 % (40-54); Hemoglobin 13.7 g/dL (13.0-16.5); Lymphocyte # 1.79 X10^3/ul (0.83-4.51); Lymphocyte % 36.5 % (19-41); Mean Corp Hgb Conc 33.2 g/dL (32-36); Mean Corpuscular Hgb 28.8 pg (27.0-32.0); Mean Corpuscular Volume 86.9 fL (80-94); Mean Platelet Vol. 11.9 fl (6.2-12.0); Monocyte# 0.27 X10^3/uL; Monocyte% 5.5 % (0-10); NRBC Flagged by Analyzer 0 % (0-5); Neutrophil # 2.83 X10^3/uL (2.7-7.7); Neutrophil % 57.6 % (47-70); Platelet Count 169 K/mm3 (150-450); RBC Distribution Width CV 13.9 % (11.6-14.6); RBC Distribution Width SD 44.8 fl (35.1-43.9); Red Blood Count 4.75 M/mm3 (4.6-6.2); White Blood Count 4.9 K/mm3 (4.4-11.0)
[2021-07-23] MEDS: Acetaminophen 325 MG Tablet 650 MG PO (06:36)
[2021-07-23 07:06] LABS: Bedside Glucose 113 mg/dL (70-110)
[2021-07-23] MEDS: Enoxaparin 30 MG/0.3 ML Syringe SC (08:54)
[2021-07-23] MEDS: metFORMIN (XR) 500 MG Tablet PO (09:00)
[2021-07-23] MEDS: dexAMETHasone 10 MG/ML Vial 6 MG IV (09:00)
--- NOTE | 2021-07-23 10:25 | PCM.DC.SUM ---
Providers Date of Admission: 07/21/21 Primary Care Physician: Dr. Latanya Moon MD Reason For Visit: ACUTE HYPOXIC RESPIRATORY FAILURE DUE TO COVID Diagnosis Discharge Diagnosis (1) Acute respiratory failure with hypoxia: Status: Acute Code(s): J96.01 - Acute respiratory failure with hypoxia (2) COVID: Status: Acute Code(s): U07.1 - COVID-19 Medications at Discharge Home Medications metformin 500 mg PO DAILY 11/18/19 dexamethasone 6 mg PO DAILY #8 tab 07/23/21 Hospital Course Operations None Procedures None Summary of Care Provided Minutes Spent on Discharge: 40 Hospital Course: RONALD BURRELL, is a 61 M with a PMH as outlined who presents via the ED on 07/21/2021 with a complaint of shortness of breath and associated cough as well as fever and chest tightness. He went to the urgent care, where he was saturating at 92%. He was therefore sent to the ED. He doesnt have a known diagnosis of COPD, but says he was told he had COPD. He had associated wheezing and chest tightness. Patient has an extensive history of smoking. He is unvaccinated for COVID. He denies any loss of taste or smell. He tested positive for COVID. Labs and vitals showed wbc of 5.4, and Hb of 13.7, as well as platelets of 175. Chemistry was unremarkable, and D dimer wasnt elevated. CXR per my review showed acute cardiopulmonary process. He is being admitted to be managed for acute hypoxic respiratory failure due to COVID 19 infection and suspected COPD exacerbation. He was started on remdesivir and decadron. His shortness of breath gradually improved and he felt much better. He was weaned off oxygen. He remained stable and was discharged home on 07/23/2021. He had a walking pulse ox which showed............ He was discharged on PO decadron 6mg daily x 8 days to complete a 10 day course. He is to remain in quarantine till 07/31/2021, to complete a 10 day course of quarantine since discharge. Patient seen and examined prior to discharge. He had no complaints and felt much better. Review of systems was otherwise negative. Labs and vitals reviewed. Home meds reviewed and reconciled. Physical Exam Const alert, oriented x3, no apparent distress, average body habitus and healthy appearing General Appearance: cooperative, comfortable and well kempt Exam Limitations: no limitations HEENT normocephalic, head/scalp atraumatic and hearing grossly normal bilaterally Eyes PERRL, EOMs intact bilaterally and conjunctivae normal Neck no lymphadenopathy, supple and no JVD Resp Resp Narrative: diminished breath sounds bibasally, no wheezes or crackles. On room air. Cardio regular rate, regular rhythm, S1 normal heart sound, S2 normal heart sound and no murmurs GI normal to inspection, nondistended, normoactive bowel sounds, soft to palpation, non-tender and non-distended Extremity normal to inspection, full ROM and no clubbing, cyanosis or edema Skin no rashes or lesions noted Neuro oriented x3, CN's II-XII intact bilaterally and moves all extremities Sensorium / Orientation: awake and alert Psych affect normal Medical Records Data Medical Nutrition Assessment Dietitian: Malnutrition Criteria Met Start: 07/22/21 16:51 Freq: Status: Active Protocol: Document 07/22/21 16:51 RMA (Rec: 07/22/21 16:51 RMA [id number]) Nutrition Malnutrition Evidence of Malnutrition Exists Yes Malnutrition (severe): Acute Illness/Injury Evidenced By Suboptimal Energy Intake ( Severe),Weight Loss (Severe) Clinical Problem Acute Disease or Injury Related Malnutrition Etiology Severe protein/calorie malnutrition related to inadequate oral intake and decreased appetite Signs/Symptoms as evidenced by 4-5% wt loss x past 1 week and PO meeting less than 50% estimated nutrition needs. Status Active Problem Recommendation Dietitian Recommendations/Changes Will liberalize diet to Carbohydrate-Controlled without caloric restriction. Will add 120ml glucerna shake TID w/ meals. Weight / BMI Weight Weight: 168 lb 6.931 oz Body Mass Index (BMI) 21.6 ABG / Lab / Microbiology Data Result Diagrams: 07/23/21 05:04 07/22/21 07:08 Laboratory: Laboratory Results - last 24 hr 07/22/21 11:18: POC Glucose 197 H 07/22/21 17:45: POC Glucose 292 H 07/22/21 22:29: POC Glucose 153 H 07/23/21 05:04: WBC 4.9, RBC 4.75, Hgb 13.7, Hct 41.3, MCV 86.9, MCH 28.8, MCHC 33.2, RDW Std Deviation 44.8 H, RDW Coeff of Abe 13.9, Plt Count 169, MPV 11.9, Immature Gran % (Auto) 0.200, Neut % (Auto) 57.6, Lymph % (Auto) 36.5, [place] % (Auto) 5.5, Eos % (Auto) 0.0, Baso % (Auto) 0.2, Absolute Neuts (auto) 2.8, Absolute Lymphs (auto) 1.79, Nucleated RBC % 0 07/23/21 06:31: POC Glucose 113 H Microbiology: Microbiology 07/21/21 10:54 Nasal Secretion SARS-CoV-2 Antigen (Rapid) - Final SARS-CoV-2 (COVID 19) D/C Instructions Discharge Diet: Low fat / Low cholesterol Discharge Activity: Return to Normal Activity Call your doctor if you observe: Fever of 101 or Higher, Shortness of breath, Dizziness, Swelling in the ankles, Chest pain and Increased palpitations (irregular heartbeat) Meaningful Use Info Meaningful Use Diagnoses (Choose all that apply): None applicable Discharge Plan Admission Admit Date/Time: 07/21/21 12:51 Primary Reason for Your Visit: covid 19 pneumonia Attending Provider: Ada Hernandez Primary Care Provider: Latanya Moon Instructions Patient Instructions: Coronavirus Disease 2019 (COVID-19): Overview Additional Instructions / Restrictions: remain in self isolation till 07/31/2021 Discharge Orders/Prescriptions Prescriptions: New dexamethasone 6 mg tablet 6 mg PO DAILY Qty: 8 RF: 0 Continued metformin 500 MG tablet extended release 24 hr 500 mg PO DAILY RF: 0 Referrals / Follow Up: Latanya Moon MD [Primary Care Provider] - Within 2 Weeks Disposition Disposition (needs filled in before D/C Order can be placed): Home, Self Care Charges/Coding Visit Charges Inpatient E&M: 39799 Disch Hosp
[2021-07-23] MEDS: Insulin Lispro 100 UNIT/ML INSULN.PEN SC (11:11)
[2021-07-23 11:36] LABS: Bedside Glucose 192 mg/dL (70-110)
--- NOTE | 2021-07-24 10:22 | CASEMGMT ---
ALBIN ALVAREZ Discharge Follow Up Phone Call: ASHLEERand: Jose Strata:1 Call Date: 07/24/21 Discharge Date: 07/23/21 Time of Call:1020 Duration:3 min Admitting Dx:acute hypoxic resp failure, COVID 19 ALBIN ALVAREZ completed follow up phone call after recent hospitalization. Pt states he is doing fair. Pt does not have a pulse ox, recommended he obtain one. Pt did not qualify for home O2. Pt was able to obtain his rx without difficulties. He has not yet made his fu appt with his PCP but will do so today. 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 Pt denies questions regarding his medications or dc instructions.
--- NOTE | 2021-07-24 10:32 | CASEMGMT ---
ALBIN ALVAREZ Assessment: Face to Face with pt for initial transition planning/care coordination assessment. RN ANTONIO introduced self and role at [facility], pt voices understanding and consents to assessment. Pt is A/O x4 and answers all questions appropriately at this time. Pt lying in bed in no distress. Care providers, pharmacy, and demographics verified/updated. Admitting Dx: acute colitis, positive cdiff PCP:[facility] Specialists:Pt denies. Preferred Pharmacy: [facility] Insurance: MMO Prescription Benefit: yes LW/HPOA: Pt denies having a LW/DPOA and denies need for info regarding AD. LNOK: Dhirajgala Tinoco, ; Eugene Cardenas Living Arrangements: Pt lives with in a single story duplex with 3 steps to enter with a rail. Pt reports she is I in ADL's and denies concerns at home. Transportation: Pt drives self and denies concerns with transportation. DME/HHC/SNF: Pt denies having any DME, hx of HHC or SNF stay. Pt states no concerns with going home at time of dc. Pt states no further concerns/needs. CM to follow. Advised pt to ask CM if any further question/concerns/needs arise, voices understanding. Pt Goal: Home Plan: Home
== END 2021-07-23 13:17 | disposition home or self-care (01) | DRG 177 ==
LOC: ED 11:50 → MS3 13:58
PROVIDERS: Admitting Provider Student in an Organized Health Care Education/Training Program; Emergency Provider Student in an Organized Health Care Education/Training Program; PCP Internal Medicine; Visit Provider Student in an Organized Health Care Education/Training Program
DX: U07.1 COVID-19 (principal); J96.01 Acute respiratory failure with hypoxia; J12.82 Pneumonia due to coronavirus disease 2019; E11.9 Type 2 diabetes mellitus without complications; J44.9 Chronic obstructive pulmonary disease, unspecified; F17.210 Nicotine dependence, cigarettes, uncomplicated; Z79.84 Long term (current) use of oral hypoglycemic drugs; Z28.3 Underimmunization status
CPT/HCPCS: 36415; 71045; 80053; 82550; 82962; 83605; 83615; 83880; 84145; 84484; 85025; 85379; 85384; 86140; 87426; 93005; 94640; 97161; 97165; 99285; 99406; J7050; A4216; J2405

== ENCOUNTER 2021-07-29 08:49 | Observation (INO) | payer BC, SELFPAY ==
[2021-07-29] VITALS (10 sets, daily range): BP systolic 127–142; BP diastolic 75–86; PULSE 66–78; RESP 12–25; TEMP 36.5–37; O2SAT 89–100; BMI 22.3
--- NOTE | 2021-07-29 09:24 | RAD_ITS ---
STUDY: X-RAY CHEST REASON FOR EXAM: Male, 61 years old. covid TECHNIQUE: Single AP portable view of the chest. COMPARISON: 07/21/2021 FINDINGS: Linear opacity in the mid left lung consistent with lingular discoid atelectasis. There is no demonstrated pleural abnormality. Normal size heart. Normal mediastinum and olga lidia. Normal visualized pulmonary arteries. Normal visualized aortic arch and descending thoracic aorta. Normal visualized thoracic spine. Normal visualized ribs, clavicles, and shoulders. There is no demonstrated abnormality of the visualized soft tissue structures of the upper abdomen. RAD/Chest 1 View (Portable) IMPRESSION: Lingular discoid atelectasis. Electronically Signed: Farhat Edmonds MD at 10:08 EDT Tel , Service support ,
--- NOTE | 2021-07-29 09:24 | EKG12_ITS ---
Test Reason : DIZZINESS Blood Pressure : / mmHG Vent. Rate : 071 BPM Atrial Rate : 071 BPM P-R Int : 158 ms QRS Dur : 082 ms QT Int : 398 ms P-R-T Axes : 061 063 027 degrees QTc Int : 432 ms Normal sinus rhythm Normal ECG Confirmed by PATRICIA HARDIN, JORY ([id number]), material expeditor HOSSEIN KULKARNI ([id number]) on 08/04/2021 6:30:11 AM Referred By: BUCKY Confirmed By:JORY GOMEZ MD
--- NOTE | 2021-07-29 09:26 | EDS_ITS ---
HPI History of Present Illness Chief Complaint: Shortness of Breath Informant: patient Onset/Context/Timing Onset: Days Context: Gradual Onset Timing: Continuous Current Severity: Mild Maximum Severity: Mild Narrative Narrative: 61-year-old male a week ago was diagnosed with COVID-19. Was hospitalized at this facility for 2 days. Says he was discharged home. Recently has been lightheaded and dizzy. Is also had nausea and vomiting. No diarrhea. No fever. Also mild shortness of breath. He denies any chest pain. He said the dizziness is worse with standing. He has had decreased oral intake. He does have a history of diabetes. Prior similar symptoms: Yes Recent Illness/Hospitalization: Yes PFSH PFS Medical History Alcohol abuse Diabetes Kidney stones Smoker Home Medications metformin 500 mg PO DAILY 11/18/19 [History Last Taken 2 Days Ago ~07/19/21] dexamethasone 6 mg PO DAILY #8 tab 07/23/21 [Rx Last Taken Unknown] Allergy/AdvReac Type Severity Reaction Status Date / Time No Known Allergies Allergy Verified 07/29/21 09:10 Social History Smoking Status: Current every day smoker tobacco type: cigarettes ROS ROS ED ROS Narrative Dizziness. Nausea and vomiting. Review of Systems ROS Unobtainable: Denies due to encephalopathy Constitutional Constitutional ED: Denies fever(s) Eyes Eyes: Denies change in vision ENT ENT ED: Denies ear pain Cardiovascular Cardiovascular: Denies chest pain Respiratory/Chest Respiratory/Chest: Reports cough and dyspnea Gastrointestinal Gastrointestinal: Reports nausea and vomiting; Denies abdominal pain or diarrhea Genitourinary Genitourinary ED: Denies dysuria Musculoskeletal Musculoskeletal: Denies myalgias Integumentary Denies rash Neurologic Neurologic: Denies headache(s) Psychiatric Psychiatric: Denies depression Endocrine Endocrinology: Denies polyuria Allergic/Immunologic Allergic/Immunologic ED: Denies urticaria EXAM Physical Exam Narrative Exam Narrative: 61-year-old male no acute distress. Pulse ox 96% on room air no hypoxia. He is afebrile at 98. He does not look septic or toxic. He does not look significantly dehydrated. HEENT exam unremarkable atraumatic. Moist mucous memories. Neck nontender no lymphadenopathy. Lungs clear to auscultation. Heart regular rhythm rate about 70 no murmur. Abdomen soft nontender. Patient moving all 4 extremities. Nontender no deformity. No edema. Neurologically is awake alert moving all 4 extremities. Const Vital Signs: 07/29/21 08:56 07/29/21 09:06 07/29/21 10:55 Temperature 98.2 F 98.2 F 98.4 F Temperature Source Oral Oral Oral Pulse Rate 74 72 68 Pulse Rate [Lying] 68 Pulse Rate [Sitting] 73 Pulse Rate [Standing] 78 Respiratory Rate 12 23 H 16 Respiratory Effort Normal Non-Labored Respiratory Depth Normal Respiratory Pattern Tachypnea Blood Pressure 132/79 H 134/77 H 137/76 H Blood Pressure [Lying] 137/76 H Blood Pressure [Sitting] 133/79 H Blood Pressure [Standing] 139/76 H Blood Pressure Mean 96 96 96 Blood Pressure Mean [Lying] 96 Blood Pressure Mean [Sitting] 97 Blood Pressure Mean [Standing] 97 Pulse Ox 96 98 98 Oxygen Delivery Method Room Air Nasal Cannula Nasal Cannula Oxygen Flow Rate (L/min) 2 2 07/29/21 11:21 Temperature Temperature Source Pulse Rate 66 Pulse Rate [Lying] Pulse Rate [Sitting] Pulse Rate [Standing] Respiratory Rate 22 H Respiratory Effort Respiratory Depth Respiratory Pattern Blood Pressure 142/86 H Blood Pressure [Lying] Blood Pressure [Sitting] Blood Pressure [Standing] Blood Pressure Mean 104 Blood Pressure Mean [Lying] Blood Pressure Mean [Sitting] Blood Pressure Mean [Standing] Pulse Ox 98 Oxygen Delivery Method Oxygen Flow Rate (L/min) Positive well nourished and well developed; Negative for obese, cachectic, contractures or unkempt General Appearance ED: well developed and NAD; Negative for unkempt, cachectic, contractures, cyanotic or diaphoretic Nutritional Appearance: Negative for cachectic or obese HEENT Reports moist mucous membranes Negative for trauma or tenderness Eyes PERRL and EOMs intact bilaterally Neck no lymphadenopathy, supple and no JVD General: Negative for tenderness Chest Wall inspection of chest normal and palpation of chest normal Resp normal respiratory effort and clear to auscultation bilaterally Effort and Inspection: Negative for pain with movement Auscultation: Negative for rales, rhonchi or wheezes Cardio regular rate, regular rhythm, S1 normal heart sound, S2 normal heart sound and no murmurs GI normal to inspection, nondistended, normoactive bowel sounds, non-tender, non- distended and no masses Inspection: Negative for abdominal distention Auscultation: normoactive bowel sounds Palpation: soft; Negative for tender, guarding or rebound tenderness present Back/Spine no CVA tenderness General Back: Negative for CVA tenderness Cervical Spine: Negative for cervical spine tenderness Extremity normal to inspection General Extremety ED: Negative for edema or tenderness General Extremity: Negative for edema Neuro oriented x3 and CN's II-XII intact bilaterally Sensorium / Orientation: alert; Negative for orientation impaired, lethargic or stuporous Motor Exam: strength 5/5 throughout Psych mental status grossly normal Appearance: Negative for unkempt Skin no rashes or lesions noted and no wounds MDM MDM MDM Narrative Medical decision making narrative: 61-year-old male complaining of generalized weakness, shortness of breath and nausea and vomiting after being diagnosed with Covid and hospitalized a week ago. To be treated with IV fluids and screening labs will be obtained. Repeat exam no change. Nurses attempted to walk patient he was too weak. I spoke to the hospitalist he will be admitted observation admission. I spoke to the monoclonal antibody center and they will work with the hospitalist to decide if he meets criteria for monoclonal antibody infusion. Lab Data Attestation: I reviewed the patient's lab results. Lab results narrative: CBC shows a white 11.3. Hemoglobin of 14.9. Electrolytes sodium 134. Gap of 10. BUN and creatinine of 18 and 1. Glucose of 193. Labs: Laboratory Results - last 24 hr 07/29/21 07/29/21 08:52 08:52 WBC 11.3 H RBC 5.22 Hgb 14.9 Hct 45.0 MCV 86.2 MCH 28.5 MCHC 33.1 RDW Std Deviation 42.3 RDW Coeff of Abe 13.4 Plt Count 194 MPV 11.9 Immature Gran % (Auto) 1.500 H Neut % (Auto) 56.2 Lymph % (Auto) 37.4 [place] % (Auto) 4.6 Eos % (Auto) 0.0 Baso % (Auto) 0.3 Absolute Neuts (auto) 6.3 Absolute Lymphs (auto) 4.22 Nucleated RBC % 0 Differential Comment SCANNED Reactive Lymphocytes 2+ Sodium 134 L Potassium 3.8 Chloride 94 L Carbon Dioxide 30.0 Anion Gap 10 BUN 18 Creatinine 1.04 Estim Creat Clear Calc 84.29 Est GFR (MDRD) Af Amer 94 Est GFR (MDRD) Non-Af 77 BUN/Creatinine Ratio 17.3 Glucose 193 H Calcium 8.8 Radiography Chest X-Ray - ED: 1 View, Read by ED Physician, Unchanged, Heart, Lungs, Mediastinum, Bony Structures and No Acute Disease Diagnostic Testing: Clinical Impression(s) from Imaging Studies Chest X-Ray 07/29/21 09:24 IMPRESSION: Lingular discoid atelectasis. Electronically Signed: Farhat Edmonds MD at 10:08 EDT Tel , Service support , Rhythm Strip Rhythm Strip: Sinus Rhythm Rate: 71 Ectopy: None EKG Initial EKG: Attestation: I personally reviewed and interpreted this EKG as follows: Interpretation: Sinus Rhythm and No Acute Injury Pattern Comments: Normal sinus rhythm rate of 71 no acute signs of FL or ischemia unchanged from a recent EKG from July 21. Discharge Plan Dx/Rx/DC Orders Clinical Impression: COVID, Adult failure to thrive, Generalized weakness Disposition Disposition: Acute Care Hospital [facility]
[2021-07-29 09:38] LABS: Absolute Lymphocyte Count 4.22 X10^3/uL (0.83-4.51); Absolute Neutrophil Count 6.3 X10^3/uL (2.0-7.7); Basophil# 0.03 X10^3/uL; Basophil% 0.3 % (0-1); Hemoglobin 14.9 g/dL (13.0-16.5); Lymphocyte # 4.22 X10^3/ul (0.83-4.51); Lymphocyte % 37.4 % (19-41); Mean Corp Hgb Conc 33.1 g/dL (32-36); Mean Corpuscular Hgb 28.5 pg (27.0-32.0); Mean Corpuscular Volume 86.2 fL (80-94); Mean Platelet Vol. 11.9 fl (6.2-12.0); Monocyte# 0.52 X10^3/uL; Monocyte% 4.6 % (0-10); NRBC Flagged by Analyzer 0 % (0-5); Neutrophil # 6.34 X10^3/uL (2.7-7.7); Neutrophil % 56.2 % (47-70); POSITIVE MORPHOLOGY YES; Platelet Count 194 K/mm3 (150-450); RBC Distribution Width CV 13.4 % (11.6-14.6); RBC Distribution Width SD 42.3 fl (35.1-43.9); Red Blood Count 5.22 M/mm3 (4.6-6.2); White Blood Count 11.3 K/mm3 (4.4-11.0)
[2021-07-29 09:42] LABS: Differential Indicated SCAN CRITERIA MET
[2021-07-29] MEDS: 0.9% Normal Saline 1,000 ML 999 ML IV (09:47)
[2021-07-29 09:48] LABS: Anion Gap 10 (5-15); BUN 18 mg/dL (7-18); BUN/Creat Ratio 17.3 RATIO (10-20); Calcium,Total 8.8 mg/dL (8.5-10.1); Chloride 94 mmol/L (98-107); Creatinine, Serum 1.04 mg/dL (0.70-1.30); EST Glomerular Filtration Rate 77 mL/min (>60); Est Glom Filt Rate - Afr Amer 94 mL/min (>60); Estimated Creatinine Clearance 84.29 ml/min; Glucose 193 mg/dL (74-106); Potassium 3.8 mmol/L (3.5-5.1); Sodium Level 134 mmol/L (136-145)
[2021-07-29 10:13] LABS: Differential Comment SCANNED; Reactive Lymphocyte 2+
--- NOTE | 2021-07-29 11:46 | NURSING ---
DR DE LA ROSA FOR DR STOVALL
--- NOTE | 2021-07-29 12:40 | NURSING ---
323 OBS RJ FUCHS, FAILURE TO THRIVE
--- NOTE | 2021-07-29 14:03 | HP.PCM.HOS_ITS ---
HPI - General General Date of Admission: 07/29/21 HPI Narrative RONALD BURRELL, is a 61 M who presents from home with worsening weakness and failure to thrive. He was diagnosed with Covid on 07/21/2021 and symptoms had started 07/19/2021. He was admitted for 2 days last week and did not require any oxygen on discharge was given a few days of remdesivir and discharged on Decadron. Presents with worsening lightheadedness and dizziness, he is also had some nausea as well as vomiting but no diarrhea. He has mild shortness of breath and on his previous admission it was felt that he likely has a history of COPD that is been undiagnosed. [facility] Medical History (Updated 07/29/21 @ 15:31 by Laura Zamora) Alcohol abuse Diabetes Kidney stones Smoker Substance abuse Home Medications metformin 500 mg PO DAILY 11/18/19 [History Last Taken 2 Days Ago ~07/19/21] dexamethasone 6 mg PO DAILY #8 tab 07/23/21 [Rx Last Taken Unknown] Allergy/AdvReac Type Severity Reaction Status Date / Time No Known Allergies Allergy Verified 07/29/21 09:10 Family History Other Cancer Surgical History no surgical history no surgical history Social History Smoking Status: Former smoker ROS Constitutional Constitutional: Denies chills, fatigue, fever(s) or malaise Eyes Eyes: Denies blurry vision ENT HEENT: Denies headache(s) or nasal discharge Cardiovascular Cardiovascular: Reports dizziness and lightheadedness; Denies chest pain, dyspnea on exertion or syncope Respiratory/Chest Respiratory/Chest: Reports cough; Denies shortness of breath at rest or shortness of breath with exertion Gastrointestinal Gastrointestinal: Reports nausea and vomiting; Denies constipation or diarrhea Genitourinary Genitourinary: Denies dysuria Neurologic Neurologic: Denies focal weakness, numbness or tremor(s) Psychiatric Psychiatric: Denies anxiety or depression Vital Signs Vital Signs Vital Signs: 07/29/21 08:56 07/29/21 09:06 07/29/21 10:55 Temperature 98.2 F 98.2 F 98.4 F Temperature Source Oral Oral Oral Pulse Rate 74 72 68 Pulse Rate [Lying] 68 Pulse Rate [Sitting] 73 Pulse Rate [Standing] 78 Respiratory Rate 12 23 H 16 Respiratory Effort Normal Non-Labored Respiratory Depth Normal Respiratory Pattern Tachypnea Blood Pressure 132/79 H 134/77 H 137/76 H Blood Pressure [Lying] 137/76 H Blood Pressure [Sitting] 133/79 H Blood Pressure [Standing] 139/76 H Blood Pressure Mean 96 96 96 Blood Pressure Mean [Lying] 96 Blood Pressure Mean [Sitting] 97 Blood Pressure Mean [Standing] 97 Pulse Ox 96 98 98 Oxygen Delivery Method Room Air Nasal Cannula Nasal Cannula Oxygen Flow Rate (L/min) 2 2 07/29/21 11:21 07/29/21 12:10 07/29/21 13:36 Temperature 97.8 F Temperature Source Temporal Pulse Rate 66 67 70 Pulse Rate [Lying] Pulse Rate [Sitting] Pulse Rate [Standing] Respiratory Rate 22 H 16 25 H Respiratory Effort Respiratory Depth Respiratory Pattern Blood Pressure 142/86 H 141/76 H 137/81 H Blood Pressure [Lying] Blood Pressure [Sitting] Blood Pressure [Standing] Blood Pressure Mean 104 97 99 Blood Pressure Mean [Lying] Blood Pressure Mean [Sitting] Blood Pressure Mean [Standing] Pulse Ox 98 100 98 Oxygen Delivery Method Nasal Cannula Oxygen Flow Rate (L/min) 2 Weight Weight: 173 lb 15.115 oz Body Mass Index (BMI) 22.3 Physical Exam Const alert, oriented x3 and no apparent distress General Appearance: cooperative HEENT normocephalic and moist oral mucous membranes Eyes PERRL, EOMs intact bilaterally and conjunctivae normal Neck supple and no JVD Resp normal respiratory effort, No normal air movement, no retractions and no use of accessory muscles Auscultation: diminished lung sounds; Negative for crackles, rales, rhonchi or wheezes Cardio regular rate, regular rhythm, S1 normal heart sound, S2 normal heart sound and no murmurs GI soft to palpation, non-tender and non-distended; Negative for hepatosplenomegaly Extremity no clubbing, cyanosis or edema Skin no rashes or lesions noted Neuro no focal motor deficits and no sensory deficits noted Psych Mood & Affect: flat affect Results Lab / Micro Data Result Diagrams: 07/29/21 08:52 07/29/21 08:52 Labs: Laboratory Results - last 24 hr 07/29/21 08:52: WBC 11.3 H, RBC 5.22, Hgb 14.9, Hct 45.0, MCV 86.2, MCH 28.5, MCHC 33.1, RDW Std Deviation 42.3, RDW Coeff of Abe 13.4, Plt Count 194, MPV 11.9, Immature Gran % (Auto) 1.500 H, Neut % (Auto) 56.2, Lymph % (Auto) 37.4, [place] % (Auto) 4.6, Eos % (Auto) 0.0, Baso % (Auto) 0.3, Absolute Neuts (auto) 6.3, Absolute Lymphs (auto) 4.22, Nucleated RBC % 0, Differential Comment SCANNED, Reactive Lymphocytes 2+ 07/29/21 08:52: Sodium 134 L, Potassium 3.8, Chloride 94 L, Carbon Dioxide 30.0, Anion Gap 10, BUN 18, Creatinine 1.04, Estim Creat Clear Calc 84.29, Est GFR (MDRD) Af Amer 94, Est GFR (MDRD) Non-Af 77, BUN/Creatinine Ratio 17.3, Glucose 193 H, Calcium 8.8 Rhythm Strip Rhythm Strip: Sinus Rhythm Rate: 71 Ectopy: None Radiology Impression Chest X-Ray 07/29/21 09:24 IMPRESSION: Lingular discoid atelectasis. Electronically Signed: Farhat Edmonds MD at 10:08 EDT Tel , Service support , Assessment & Plan Assessment/Plan (1) Adult failure to thrive: (2) COVID: (3) Generalized weakness: PLAN: 1. Generalized weakness and adult failure to thrive secondary to COVID- 19/possible COPD exacerbation -Chest x-ray is unremarkable does not demonstrate a pneumonia -He was 89% on room air in ER and was placed on 2 L nasal cannula for comfort -Unfortunately because his oxygen saturation is below 94% he qualifies as severe Covid therefore does not qualify for the monoclonal antibody infusion -Continue with 2 more days of Decadron -We will place him on duo nebs -He will need to follow-up with pulmonology as an outpatient after discharge for pulmonary function testing -On his previous admission D-dimer was normal, denies any chest pain -He received 2 days worth of remdesivir previously, will not restart remdesivir -We will place him on Zofran to encourage improved p.o. intake 2. DM2 -We will place him on sliding scale insulin and make adjustments as necessary -Accu-Cheks AC at bedtime -Hold Metformin DVT: Lovenox Charges/Coding Visit Charges OBSV E&M: 68651 Initial observation care L3
[2021-07-29] MEDS: Ipratropium/Albuterol Sulfate 3 ML AMPUL.NEB INHALATION ×2 (15:35→19:50)
[2021-07-29 16:16] LABS: Bedside Glucose 282 mg/dL (70-110)
[2021-07-29] MEDS: dexAMETHasone 4 MG Tablet 6 MG PO (17:10)
[2021-07-29] MEDS: Insulin Lispro 100 UNIT/ML INSULN.PEN SC ×2 (17:12→21:52)
[2021-07-29] MEDS: Ondansetron 4 MG/2 ML Vial IV (17:14)
[2021-07-29] MEDS: 0.9% Saline Lock 10 ML Syringe IV (17:14)
[2021-07-29 22:11] LABS: Bedside Glucose 348 mg/dL (70-110)
[2021-07-30] VITALS (9 sets, daily range): BP systolic 125–147; BP diastolic 58–76; PULSE 65–76; RESP 16–21; TEMP 35.9–36.7; O2SAT 92–95
[2021-07-30] MEDS: Insulin Lispro 100 UNIT/ML INSULN.PEN SC ×4 (06:15→21:30)
[2021-07-30 06:30] LABS: Bedside Glucose 319 mg/dL (70-110)
[2021-07-30] MEDS: Ipratropium/Albuterol Sulfate 3 ML AMPUL.NEB INHALATION ×4 (07:30→19:17)
[2021-07-30 07:47] LABS: Absolute Lymphocyte Count 1.23 X10^3/uL (0.83-4.51); Absolute Neutrophil Count 3.7 X10^3/uL (2.0-7.7); Basophil# 0.01 X10^3/uL; Basophil% 0.2 % (0-1); Hematocrit 44.4 % (40-54); Hemoglobin 14.7 g/dL (13.0-16.5); Lymphocyte # 1.23 X10^3/ul (0.83-4.51); Lymphocyte % 23.7 % (19-41); Mean Corp Hgb Conc 33.1 g/dL (32-36); Mean Corpuscular Hgb 28.5 pg (27.0-32.0); Mean Corpuscular Volume 86.2 fL (80-94); Mean Platelet Vol. 11.6 fl (6.2-12.0); Monocyte# 0.13 X10^3/uL; Monocyte% 2.5 % (0-10); NRBC Flagged by Analyzer 0 % (0-5); Neutrophil # 3.73 X10^3/uL (2.7-7.7); Neutrophil % 72.1 % (47-70); POSITIVE MORPHOLOGY YES; Platelet Count 196 K/mm3 (150-450); RBC Distribution Width CV 13.4 % (11.6-14.6); RBC Distribution Width SD 41.8 fl (35.1-43.9); Red Blood Count 5.15 M/mm3 (4.6-6.2); White Blood Count 5.2 K/mm3 (4.4-11.0)
[2021-07-30 07:50] LABS: Differential Indicated SCAN CRITERIA MET
--- NOTE | 2021-07-30 08:02 | PCS.PANDOC ---
PANDEMIC DOCUMENTATION INITIATED: Date: 06/01/2021 Time: 190
--- NOTE | 2021-07-30 08:03 | CASEMGMT ---
Social Work Note Per community youth secretary questions, pt has completed HCPOA and LW, hasn't provided copies to [facility], and pt is able to bring in copies. Bonny Flynn RADIAL DRILL PRESS OPERATOR, STRUCTURAL STEEL IRONWORKER
[2021-07-30 08:06] LABS: Anion Gap 9 (5-15); BUN 16 mg/dL (7-18); BUN/Creat Ratio 16.6 RATIO (10-20); Calcium,Total 9.1 mg/dL (8.5-10.1); Chloride 97 mmol/L (98-107); Creatinine, Serum 0.96 mg/dL (0.70-1.30); EST Glomerular Filtration Rate 85 mL/min (>60); Est Glom Filt Rate - Afr Amer 102 mL/min (>60); Estimated Creatinine Clearance 91.32 ml/min; Glucose 309 mg/dL (74-106); Potassium 4.5 mmol/L (3.5-5.1); Sodium Level 134 mmol/L (136-145)
[2021-07-30] MEDS: dexAMETHasone 4 MG Tablet 6 MG PO (09:18)
[2021-07-30] MEDS: Enoxaparin 40 MG/0.4 ML Syringe SC (09:18)
[2021-07-30 12:05] LABS: Bedside Glucose 316 mg/dL (70-110)
--- NOTE | 2021-07-30 12:12 | CASEMGMT ---
ALBIN ALVAREZ Readmission Note Previous Admission: 07/21/21-07/23/21 Diagnosis: COVID 19 DC Disposition: Home, pt did not qualify for home O2. Current Admission Presentation: Pt presented to ER from home with worsening lightheadedness and dizziness, FTT. ALBIN ALVAREZ in to pt room. Pt on RA. Pt reports that he was taking his dexamethasone as ordered. He had made a f/u appt with which is scheduled on 08/01/21. ALBIN ALVAREZ to follow with patient for the need for therapy as well as O2. DC PLAN: Home
--- NOTE | 2021-07-30 15:53 | CASEMGMT ---
Pt screened with [facility] Palliative Care Screening Tool due to readmission, pt did not meet criteria.
--- NOTE | 2021-07-30 16:19 | CHAPLAIN ---
Type of Pastoral Visit ___ Initial Visit ___ Follow-up Visit ___ On-call Visit ___ General Patient Visit ___ Spiritual Assessment ___ Family Conference ___ Bereavement ___ Rapid Response ___ Code Blue _x__ Other (describe below) Pastoral Care Referral From ___ Patient ___ Family ___ Nurse ___ Physician ___ Director Embalmer ___ Hand Cloth Examiner _x__ Other (describe below) Sacrament/Intervention ___ Active listening ___ Anointing ___ Jain ___ Bereavement ___ Communion ___ Hailey exploration ___ ___ Life review ___ Prayer ___ Reconciliation ___ Sacrament of Sick ___ Supportive presence ___ Wedding ___ Other (describe below) Pastoral Comments phone call into isolation room did not go through to patient
--- NOTE | 2021-07-30 17:20 | PCM.PN.HOSP ---
Subjective Subjective Feels little bit better, still dizzy, denies any increased p.o. intake. Objective Data Objective Data Vital Signs: Vital Signs Temp Pulse Resp BP Pulse Ox 98.0 F 65 16 147/76 H 95 07/30/21 17:12 07/30/21 17:12 07/30/21 17:12 07/30/21 17:12 07/30/21 17:12 Oxygen Flow Rate (L/min) 95 Oxygen Delivery Method Room Air Weight: 173 lb 15.115 oz Body Mass Index (BMI) 22.3 Intake & Output: Intake and Output for Last 24 Hours 07/29/21 07/30/21 07/31/21 03:59 03:59 03:59 Intake Total 1220 / 1220 Output Total 825 / 825 800 / 800 Balance 395 / 395 -800 / -800 Medical Nutrition Assessment Dietitian: Malnutrition Criteria Met Start: 07/30/21 12:11 Freq: Status: Active Protocol: Document 07/30/21 12:11 AG (Rec: 07/30/21 12:11 [id number]) Nutrition Malnutrition Evidence of Malnutrition Exists Yes Malnutrition (moderate): Acute Illness/Injury Evidenced By Suboptimal Energy Intake ( Moderate),Weight Loss ( Moderate) Clinical Problem Acute Disease or Injury Related Malnutrition Etiology moderate, acute malnutrition r /t inadequate energy intake d/ t COVID-19 Signs/Symptoms as evidenced by unintentional wt loss of 6.1#/3.4% wt loss < 2 weeks, estimated PO intake meeting <75% of estimated nutritional needs x 2 weeks Status Active Problem Recommendation Dietitian Recommendations/Changes continue 2200 calorie controlled/consistent CHO diet and 120mL glucerna ONS w/ meals; if PO intake declines, recommend regular diet d/t acute malnutrition Lab / Micro Data Result Diagrams: 07/30/21 07:15 07/30/21 07:15 Labs: Laboratory Results - last 24 hr 07/29/21 21:51: POC Glucose 348 H 07/30/21 06:10: POC Glucose 319 H 07/30/21 07:15: WBC 5.2, RBC 5.15, Hgb 14.7, Hct 44.4, MCV 86.2, MCH 28.5, MCHC 33.1, RDW Std Deviation 41.8, RDW Coeff of Abe 13.4, Plt Count 196, MPV 11.6, Immature Gran % (Auto) 1.500 H, Neut % (Auto) 72.1 H, Lymph % (Auto) 23.7, [place] % (Auto) 2.5, Eos % (Auto) 0.0, Baso % (Auto) 0.2, Absolute Neuts (auto) 3.7, Absolute Lymphs (auto) 1.23, Nucleated RBC % 0 07/30/21 07:15: Sodium 134 L, Potassium 4.5, Chloride 97 L, Carbon Dioxide 28.0, Anion Gap 9, BUN 16, Creatinine 0.96, Estim Creat Clear Calc 91.32, Est GFR (MDRD) Af Amer 102, Est GFR (MDRD) Non-Af 85, BUN/Creatinine Ratio 16.6, Glucose 309 H, Calcium 9.1 07/30/21 11:28: POC Glucose 316 H Rhythm Strip Rhythm Strip: Sinus Rhythm Rate: 71 Ectopy: None Physical Exam Const alert, oriented x3 and no apparent distress General Appearance: cooperative HEENT normocephalic and moist oral mucous membranes Eyes PERRL, EOMs intact bilaterally and conjunctivae normal Neck supple and no JVD Resp normal respiratory effort, No normal air movement, no retractions and no use of accessory muscles Auscultation: diminished lung sounds; Negative for crackles, rales, rhonchi or wheezes Cardio regular rate, regular rhythm, S1 normal heart sound, S2 normal heart sound and no murmurs GI soft to palpation, non-tender and non-distended; Negative for hepatosplenomegaly Extremity no clubbing, cyanosis or edema Skin no rashes or lesions noted Neuro no focal motor deficits and no sensory deficits noted Psych Appearance: appropriate Mood & Affect: flat affect Assessment & Plan Assessment/Plan (1) Adult failure to thrive: (2) COVID: (3) Generalized weakness: PLAN: 1. Generalized weakness and adult failure to thrive secondary to COVID-19/possible COPD exacerbation -Chest x-ray is unremarkable does not demonstrate a pneumonia -Currently 95% on room air -His last dose of Decadron was today -We will place him on duo nebs -He will need to follow-up with pulmonology as an outpatient after discharge for pulmonary function testing -On his previous admission D-dimer was normal, denies any chest pain -He received 2 days worth of remdesivir previously, will not restart remdesivir -We will place him on Zofran to encourage improved p.o. intake -Remains dizzy, and states that he is not eating or drinking cannot give a good reason as to why we will continue to encourage and plan for possible discharge in the morning 2. DM2 -We will place him on sliding scale insulin and make adjustments as necessary -Accu-Cheks AC at bedtime -Hold Metformin DVT: Lovenox Charges/Coding Visit Charges OBSV E&M: 81265 Subsequent observation care L2
[2021-07-30 17:21] LABS: Bedside Glucose 402 mg/dL (70-110)
[2021-07-30 21:56] LABS: Bedside Glucose 371 mg/dL (70-110)
[2021-07-31] MEDS: Insulin Lispro 100 UNIT/ML INSULN.PEN SC ×2 (06:24→11:30)
[2021-07-31 06:27] VITALS: BP 124/64; PULSE 61; RESP 18; TEMP 36.7; O2SAT 97
[2021-07-31 06:35] LABS: Bedside Glucose 278 mg/dL (70-110)
[2021-07-31] MEDS: Ipratropium/Albuterol Sulfate 3 ML AMPUL.NEB INHALATION ×2 (07:06→10:30)
[2021-07-31 07:07] VITALS: PULSE 65; RESP 17; O2SAT 94
[2021-07-31 09:00] VITALS: BP 138/76; PULSE 63; RESP 16; TEMP 36.3; O2SAT 94
[2021-07-31] MEDS: Enoxaparin 40 MG/0.4 ML Syringe SC (09:10)
[2021-07-31 10:30] VITALS: PULSE 68; RESP 16
[2021-07-31 12:16] LABS: Bedside Glucose 195 mg/dL (70-110)
--- NOTE | 2021-07-31 13:33 | PCM.DC ---
Discharge Instructions Diet Discharge Diet: Carb Control Diet Activity Discharge Activity: Return to Normal Activity Dressing / Incision Call your doctor if you observe: Fever of 101 or Higher, Shortness of breath, Dizziness, Fainting spells, Swelling in the ankles, Chest pain and Increased palpitations (irregular heartbeat) Follow Up Care Test Results: Test results from this visit will be discussed in further detail at your follow-up appointment, if applicable. Discharge Plan Admission Admit Date/Time: 07/29/21 12:09 Attending Provider: Jori Chritsie Primary Care Provider: Latanya Moon Discharge Orders/Prescriptions Prescriptions: Changed metformin 500 MG tablet extended release 24 hr 500 mg PO BIDCM Qty: 0 RF: 0 Discontinued dexamethasone 6 mg tablet 6 mg PO DAILY Qty: 8 RF: 0 Referrals / Follow Up: Latanya Moon MD [Primary Care Provider] - Within 1 Week Disposition Disposition (needs filled in before D/C Order can be placed): Home, Self Care
--- NOTE | 2021-07-31 16:56 | DS.PCM_ITS ---
Providers Date of Admission: 07/29/21 Primary Care Physician: Dr. Latanya Moon MD Reason For Visit: COVID, FAILURE TO THRIVE Diagnosis Discharge Diagnosis (1) Adult failure to thrive: Status: Acute Code(s): R62.7 - Adult failure to thrive (2) COVID: Code(s): U07.1 - COVID-19 (3) Generalized weakness: Status: Acute Code(s): R53.1 - Weakness Medications at Discharge Home Medications metformin 500 mg PO BIDCM #0 tab 07/31/21 Hospital Course Operations None Procedures None Summary of Care Provided Minutes Spent on Discharge: 35 Hospital Course: Per HPI: RONALD BURRELL, is a 61 M who presents from home with worsening weakness and failure to thrive. He was diagnosed with Covid on 07/21/2021 and symptoms had started 07/19/2021. He was admitted for 2 days last week and did not require any oxygen on discharge was given a few days of remdesivir and discharged on Decadron. Presents with worsening lightheadedness and dizziness, he is also had some nausea as well as vomiting but no diarrhea. He has mild shortness of breath and on his previous admission it was felt that he likely has a history of COPD that is been undiagnosed. Hospital Course: 1. Generalized weakness and adult failure to thrive secondary to COVID-19- 61-year-old male presents to the hospital with generalized weakness and failure to thrive. He said that he was diagnosed with Covid on 07/21/2021 and was in the hospital for few days and then went home without oxygen. He states that since then he has not been eating or drinking very well, and he does feel a bit lightheaded or dizzy at home however he would sit up. He is mostly been lying on the couch. Following present to the hospital he was 89% and placed on 1 L nasal cannula for comfort which she has not needed throughout his stay. On the day of discharge he was 97% at room air at times. He did complete 10 total days of Decadron and is outside the window for remdesivir, he did receive 2 days during his previous admission. He does not meet criteria for baricitinib and unfortunately was considered severe Covid since he was below 94% on room air on admission so he could not get the monoclonal antibody either. Today he is feeling okay, says that he still little bit weak but he was evaluated by PT/OT and they felt that he did not meet any skilled needs at this time. Denies any nausea and thinks that he feels little bit better since he has been eating and drinking over better while here. I encouraged him to continue increase p.o. intake at home. I discussed with him the plan for discharge today and he expressed understanding of the risk benefits of going home and would like to go home today. 2. Type 2 diabetes is a chronic medical condition which complicates his care. I did increase his Metformin from 500 mg ER daily to twice daily given his elevated blood sugars as his p.o. intake increased. I recommend that he follow- up with his PCP in 3 to 5 days for evaluation, his quarantine since he does not require oxygen will be over on Tuesday. Physical Exam Const alert, oriented x3 and no apparent distress General Appearance: cooperative HEENT normocephalic and moist oral mucous membranes Eyes PERRL, EOMs intact bilaterally and conjunctivae normal Neck supple and no JVD Resp normal respiratory effort, No normal air movement, no retractions and no use of accessory muscles Auscultation: diminished lung sounds; Negative for crackles, rales, rhonchi or wheezes Cardio regular rate, regular rhythm, S1 normal heart sound, S2 normal heart sound and no murmurs GI soft to palpation, non-tender and non-distended; Negative for hepatosplenomegaly Extremity no clubbing, cyanosis or edema Skin no rashes or lesions noted Neuro no focal motor deficits and no sensory deficits noted Psych affect normal Appearance: appropriate Mood & Affect: flat affect Weight / BMI Weight Weight: 173 lb 15.115 oz Body Mass Index (BMI) 22.3 ABG / Lab / Microbiology Data Result Diagrams: 07/30/21 07:15 07/30/21 07:15 Laboratory: Laboratory Results - last 24 hr 07/30/21 17:06: POC Glucose 402 H 07/30/21 21:28: POC Glucose 371 H 07/31/21 06:19: POC Glucose 278 H 07/31/21 11:29: POC Glucose 195 H D/C Instructions Discharge Diet: Carb Control Diet Call your doctor if you observe: Fever of 101 or Higher, Shortness of breath, Dizziness, Fainting spells, Swelling in the ankles, Chest pain and Increased palpitations (irregular heartbeat) Meaningful Use Info Meaningful Use Diagnoses (Choose all that apply): None applicable Discharge Plan Admission Admit Date/Time: 07/29/21 12:09 Attending Provider: Jori Christie Primary Care Provider: Latanya Moon Discharge Orders/Prescriptions Prescriptions: Changed metformin 500 MG tablet extended release 24 hr 500 mg PO BIDCM Qty: 0 RF: 0 Discontinued dexamethasone 6 mg tablet 6 mg PO DAILY Qty: 8 RF: 0 Referrals / Follow Up: Latanya Moon MD [Primary Care Provider] - Within 1 Week Disposition Disposition (needs filled in before D/C Order can be placed): Home, Self Care Charges/Coding Visit Charges OBSV E&M: 30985 Observation care discharge
== END 2021-07-31 14:36 | disposition home or self-care (01) ==
LOC: ED 11:58 → MS3 12:10
PROVIDERS: Admitting Provider Family Medicine; Emergency Provider Emergency Medicine; PCP Internal Medicine; Visit Provider Family Medicine
DX: U07.1 COVID-19 (principal); R62.7 Adult failure to thrive; E11.65 Type 2 diabetes mellitus with hyperglycemia; F17.210 Nicotine dependence, cigarettes, uncomplicated; Z79.899 Other long term (current) drug therapy; Z79.84 Long term (current) use of oral hypoglycemic drugs
CPT/HCPCS: 36415; 71045; 80048; 82962; 85025; 93005; 94640; 94667; 94668; 96361; 96372; 96374; 97116; 97162; 97166; 99218; 99251; 99285; 99406; A4216; G0378; G0463; J2405

== ENCOUNTER 2022-06-20 11:06 | Emergency (ER) | payer BC, SELFPAY ==
[2022-06-20 11:08] VITALS: BP 141/78; PULSE 73; RESP 14; TEMP 37.2; O2SAT 91; BMI 22.2
--- NOTE | 2022-06-20 11:21 | RAD_ITS ---
STUDY: X-RAY CHEST REASON FOR EXAM: Male, 61 years old. Cough and chest pain. TECHNIQUE: Single AP portable view of the chest. COMPARISON: 07/29/2021. FINDINGS: The lungs are clear and expanded. There is no demonstrated pleural abnormality. Normal size heart. Normal mediastinum and olga lidia. Normal visualized pulmonary arteries. Normal visualized aortic arch and descending thoracic aorta. Stable soft tissues and osseous structures. There is no demonstrated abnormality of the visualized soft tissue structures of the upper abdomen. RAD/Chest 1 View (Portable) IMPRESSION: No active pulmonary disease. Electronically Signed: Juan Carlos Morales MD at 12:06 EDT ,
--- NOTE | 2022-06-20 11:21 | EKG12_ITS ---
Test Reason : COLD SYMPTOMS Blood Pressure : / mmHG Vent. Rate : 067 BPM Atrial Rate : 067 BPM P-R Int : 158 ms QRS Dur : 076 ms QT Int : 388 ms P-R-T Axes : 074 069 068 degrees QTc Int : 409 ms Normal sinus rhythm Normal ECG Confirmed by MARIO HARDIN, NASREEN ([id number]), supervising editor news reel HOSSEIN KULKARNI ([id number]) on 06/22/2022 9:15:58 AM Referred By: Confirmed By:RIGO MARTIN MD
[2022-06-20] MEDS: Ipratropium/Albuterol Sulfate 3 ML AMPUL.NEB INHALATION (11:38)
[2022-06-20 11:39] VITALS: PULSE 78; RESP 18
--- NOTE | 2022-06-20 11:41 | ED.RN ---
O2 SATS 88% ON ROOM AIR. 2L NC APPLIED AT THIS TIME. PT O2 SATS INCREASE TO 97%. PT TOLERATING WELL. DENIES DISCOMFORT
[2022-06-20 11:45] LABS: Absolute Lymphocyte Count 2.38 X10^3/uL (0.83-4.51); Absolute Neutrophil Count 6.6 X10^3/uL (2.0-7.7); Basophil# 0.02 X10^3/uL; Basophil% 0.2 % (0-1); Eosinophil# 0.23 X10^3/uL; Eosinophils% 2.3 % (0-5); Hematocrit 41.3 % (40-54); Hemoglobin 13.5 g/dL (13.0-16.5); Lymphocyte # 2.38 X10^3/ul (0.83-4.51); Lymphocyte % 23.9 % (19-41); Mean Corp Hgb Conc 32.7 g/dL (32-36); Mean Corpuscular Hgb 28.8 pg (27.0-32.0); Mean Corpuscular Volume 88.2 fL (80-94); Monocyte# 0.74 X10^3/uL; Monocyte% 7.4 % (0-10); NRBC Flagged by Analyzer 0 % (0-5); Neutrophil # 6.56 X10^3/uL (2.7-7.7); Platelet Count 224 K/mm3 (150-450); RBC Distribution Width CV 14.2 % (11.6-14.6); RBC Distribution Width SD 45.5 fl (35.1-43.9); Red Blood Count 4.68 M/mm3 (4.6-6.2)
[2022-06-20 11:46] VITALS: O2SAT 88
[2022-06-20 12:02] LABS: Anion Gap 5 (5-15); BUN 7 mg/dL (7-18); BUN/Creat Ratio 7.9 RATIO (10-20); Chloride 100 mmol/L (98-107); Creatinine, Serum 0.88 mg/dL (0.70-1.30); EST Glomerular Filtration Rate 93 mL/min (>60); Est Glom Filt Rate - Afr Amer 113 mL/min (>60); Estimated Creatinine Clearance 99.37 ml/min; Glucose 190 mg/dL (74-106); Potassium 4.1 mmol/L (3.5-5.1); Sodium Level 137 mmol/L (136-145); Troponin-I HS 4 pg/mL (3.0-78.0)
[2022-06-20 12:26] VITALS: BP 167/84; PULSE 63; RESP 28; O2SAT 99
--- NOTE | 2022-06-20 12:26 | EDS_ITS ---
HPI History of Present Illness Chief Complaint: Cold Sx Informant: patient Onset/Context/Timing Onset: Days Context: Gradual Onset Timing: Continuous Current Severity: Moderate Worsened by: Nothing Relieved by: Nothing Associated Symptoms Associated Symptoms: Cough with sputum and chest pain Narrative Narrative: Patient reports a gradual onset of cough with occasional sputum, green. Reports retrosternal chest pain, worse after coughing. Denies hemoptysis. Denies any leg pain or swelling. Denies any history of DVT or PE. Smoker. Denies any history of heart disease. Denies any history of aortic disease. No fevers. Prior similar symptoms: No Recent Illness/Hospitalization: No PFSH PFS Medical History Alcohol abuse COVID Diabetes Kidney stones Smoker Substance abuse Home Medications metformin 500 mg tablet,extended release 24 hr 500 mg PO BIDCM DM #0 tabs 07/31/21 [Rx Last Taken 2 Days Ago ~07/19/21] aspirin 81 mg tablet,delayed release 81 mg PO DAILY 06/20/22 [History Last Taken Unknown] atorvastatin 40 mg tablet 40 mg PO DAILY 06/20/22 [History Last Taken Unknown] glimepiride 4 mg tablet 4 mg PO DAILY 06/20/22 [History Last Taken Unknown] losartan 25 mg tablet 25 mg PO DAILY 06/20/22 [History Last Taken Unknown] tadalafil 20 mg tablet 20 mg PO DAILY PRN PRN Erectile Dysfunction 06/20/22 [History Last Taken Unknown] Allergy/AdvReac Type Severity Reaction Status Date / Time No Known Allergies Allergy Verified 06/20/22 11:08 Family History Other Cancer Social History Smoking Status: Former smoker ROS ROS ED Constitutional Constitutional ED: Denies chills or fever(s) Eyes Eyes: Denies blurry vision ENT ENT ED: Denies ear pain Cardiovascular Cardiovascular: Reports chest pain Respiratory/Chest Respiratory/Chest: Reports cough, dyspnea and sputum Gastrointestinal Gastrointestinal: Denies abdominal pain Genitourinary Genitourinary ED: Denies dysuria Musculoskeletal Musculoskeletal: Denies arthralgias Integumentary Denies abscess Neurologic Neurologic: Denies headache(s) Psychiatric Psychiatric: Denies anxiety Endocrine Endocrinology: Denies cold intolerance Hematologic/Lymphatic Hematologic/Lymphatic: Denies easy bruising Allergic/Immunologic Allergic/Immunologic ED: Denies mouth swelling EXAM Physical Exam Const Vital Signs: 06/20/22 11:08 06/20/22 11:39 06/20/22 11:46 Temperature 98.9 F Temperature Source Temporal Pulse Rate 73 78 Respiratory Rate 14 18 Respiratory Effort Short of Breath Respiratory Depth Normal Respiratory Pattern Normal Normal Blood Pressure 141/78 H Blood Pressure Mean 99 Pulse Ox 91 Oxygen Delivery Method Room Air Room Air Positive well nourished and well developed General Appearance ED: well developed HEENT Reports moist mucous membranes Eyes EOMs intact bilaterally Resp normal respiratory effort Auscultation: wheezes Cardio regular rate and regular rhythm Extremity normal to inspection General Extremety ED: Negative for edema or tenderness General Extremity: Negative for edema Neuro oriented x3 Sensorium / Orientation: alert Psych mental status grossly normal Skin no rashes or lesions noted MDM MDM MDM Narrative Medical decision making narrative: EKG shows sinus rhythm at a rate of 67. No sign of acute infarction or ischemia pattern. This was interpreted by me. Chest x-ray showed no acute process. This was interpreted by the radiologist and myself. Laboratory studies including troponin were unremarkable. COVID test was negative. On reevaluation after breathing treatments, the patient is feeling better, breathing better. I believe this is a COPD exacerbation, bronchitis. There is no evidence of pneumonia or other infections or sepsis. I do not believe this is consistent based on his history, exam, symptoms, and work-up that this is ACS, DVT, PE, aortic disease, or any other emergent process. Patient will be discharged on a course of doxycycline. Follow-up for any new or worsening issues. Impression #1 bronchospasm Lab Data Attestation: I reviewed the patient's lab results. Labs: Laboratory Results - last 24 hr 06/20/22 06/20/22 11:38 11:38 WBC 10.0 RBC 4.68 Hgb 13.5 Hct 41.3 MCV 88.2 MCH 28.8 MCHC 32.7 RDW Std Deviation 45.5 H RDW Coeff of Abe 14.2 Plt Count 224 MPV 11.0 Immature Gran % (Auto) 0.200 Neut % (Auto) 66.0 Lymph % (Auto) 23.9 [place] % (Auto) 7.4 Eos % (Auto) 2.3 Baso % (Auto) 0.2 Absolute Neuts (auto) 6.6 Absolute Lymphs (auto) 2.38 Nucleated RBC % 0 Sodium 137 Potassium 4.1 Chloride 100 Carbon Dioxide 32.0 Anion Gap 5 BUN 7 Creatinine 0.88 Estim Creat Clear Calc 99.37 Est GFR (MDRD) Af Amer 113 Est GFR (MDRD) Non-Af 93 BUN/Creatinine Ratio 7.9 L Glucose 190 H Calcium 9.0 Troponin I High Sens 4 Radiography Diagnostic Testing: Clinical Impression(s) from Imaging Studies Chest X-Ray 06/20/22 11:21 IMPRESSION: No active pulmonary disease. Electronically Signed: Juan Carlos Morales MD at 12:06 EDT , Discharge Plan Triage Chief Complaint: Cold Sx ED Provider: Froylan Conti Dx/Rx/DC Orders Prescriptions: No Action metformin 500 MG tablet extended release 24 hr 500 mg PO BIDCM Qty: 0 0RF atorvastatin 40 mg tablet 40 mg PO DAILY Label Comments: Take 1 tablet by mouth once daily. aspirin 81 mg tablet,delayed release (DR/EC) 81 mg PO DAILY Label Comments: Take 1 tablet by mouth once daily. glimepiride 4 mg tablet 4 mg PO DAILY Label Comments: Take 1 tablet by mouth daily with breakfast. losartan 25 mg tablet 25 mg PO DAILY Label Comments: Take 1 tablet by mouth once daily. tadalafil 20 mg tablet 20 mg PO DAILY PRN PRN (Reason: Erectile Dysfunction) Label Comments: Take by mouth. Take one(1) tablet per day as directed Primary Care Provider: Latanya Moon Referrals: Latanya Moon MD [Primary Care Provider] -
== END 2022-06-20 12:40 | disposition home or self-care (01) ==
PROVIDERS: Emergency Provider Emergency Medicine; PCP Internal Medicine; Visit Provider Emergency Medicine
DX: J44.1 Chronic obstructive pulmonary disease with (acute) exacerbation (principal); E11.9 Type 2 diabetes mellitus without complications; Z79.82 Long term (current) use of aspirin; Z79.899 Other long term (current) drug therapy; Z79.84 Long term (current) use of oral hypoglycemic drugs; Z86.16 Personal history of COVID-19; Z87.891 Personal history of nicotine dependence
CPT/HCPCS: 71045; 80048; 84484; 85025; 87811; 93005; 94640; 99284; A4216

== ENCOUNTER 2022-12-03 15:58 | Observation (INO) | payer BC, SELFPAY ==
[2022-12-03] VITALS (8 sets, daily range): BP systolic 155–166; BP diastolic 72–89; PULSE 76–89; RESP 14–18; TEMP 36.1–37.7; O2SAT 91–100; BMI 23.8
[2022-12-03] MEDS: Ketorolac 15 MG/ML Vial IV (18:06)
[2022-12-03] MEDS: 0.9% Normal Saline 1,000 ML 250 ML IV (18:07)
[2022-12-03 18:24] LABS: Bacteria 0 SEEN /hpf (None Seen); Red Blood Cells-Urine 0 SEEN /hpf (0-5); Squamous Epithelial Cells - UA 0 SEEN /hpf (0-5)
[2022-12-03 18:30] LABS: Color, Urine Yellow (Yellow); Glucose, Dipstick 50 mg/dl (Normal); Ketone-Dipstick 5 mg/dl (Negative); Leukocyte Esterase-Dipstick Negative /ul (Negative); Nitrite-Dipstick Negative (Negative); Occult Blood-Urine Negative /ul (Negative); Protein-Dipstick Negative (Negative); Specific Gravity, Urine 1.025 (1.002-1.030); Urine Bilirubin Dipstick Negative (Negative); Urine Clarity Clear (Clear); Urine Urobilinogen Normal (Normal)
[2022-12-03 18:36] LABS: Absolute Lymphocyte Count 2.03 X10^3/uL (0.83-4.51); Absolute Neutrophil Count 15.8 X10^3/uL (2.0-7.7); Basophil# 0.04 X10^3/uL; Basophil% 0.2 % (0-1); Eosinophil# 0.04 X10^3/uL; Eosinophils% 0.2 % (0-5); Hematocrit 45.4 % (40-54); Hemoglobin 14.6 g/dL (13.0-16.5); Lymphocyte # 2.03 X10^3/ul (0.83-4.51); Lymphocyte % 10.7 % (19-41); Mean Corp Hgb Conc 32.2 g/dL (32-36); Mean Corpuscular Hgb 27.9 pg (27.0-32.0); Mean Corpuscular Volume 86.8 fL (80-94); Mean Platelet Vol. 11.9 fl (6.2-12.0); Monocyte# 0.99 X10^3/uL; Monocyte% 5.2 % (0-10); NRBC Flagged by Analyzer 0 % (0-5); Neutrophil # 15.81 X10^3/uL (2.7-7.7); Neutrophil % 83.2 % (47-70); Platelet Count 253 K/mm3 (150-450); RBC Distribution Width SD 44.9 fl (35.1-43.9); Red Blood Count 5.23 M/mm3 (4.6-6.2)
[2022-12-03 18:37] LABS: Mucous, Urine 1+ /hpf (<or=2+); White Blood Cells 0-5 SEEN /hpf (0-5)
[2022-12-03 18:41] LABS: AST(SGOT) 11 U/L (15-37); Alanine Aminotransfer ALT/SGPT 15 U/L (16-61); Alkaline Phosphatase 96 U/L (45-117); Anion Gap 8 (5-15); BUN 12 mg/dL (7-18); BUN/Creat Ratio 13.8 RATIO (10-20); Bilirubin, Direct 0.12 mg/dL (0.00-0.30); Chloride 103 mmol/L (98-107); Creatinine, Serum 0.87 mg/dL (0.70-1.30); EST Glomerular Filtration Rate 95 mL/min (>60); Est Glom Filt Rate - Afr Amer 115 mL/min (>60); Estimated Creatinine Clearance 103.67 ml/min; Globulin 3.9 g/dL (2.2-4.2); Glucose 200 mg/dL (74-106); Lipase 103 U/L (73-393); Potassium 3.7 mmol/L (3.5-5.1); Protein, Total 7.9 g/dL (6.4-8.2); Sodium Level 138 mmol/L (136-145)
--- NOTE | 2022-12-03 19:00 | EDS_ITS ---
HPI HPI - GI History of Present Illness Chief Complaint: Flank Pain Informant: patient Narrative Narrative: Nontraumatic pain mid abdomen that radiates to his right flank since yesterday. Took ibuprofen yesterday was able to sleep. Waking with symptoms today. No fevers. No nausea or vomiting. No urinary symptoms. Normal bowel movements. History of similar with kidney stone 15 years without needed intervention per patient. History of diabetes hypertension on medications. Denies history of alcohol use. Prior similar symptoms: Yes PFSH PFSH Medical History Alcohol abuse COVID Diabetes Kidney stones Smoker Substance abuse Home Medications metformin 500 mg tablet,extended release 24 hr 500 mg PO BIDCM DM #0 tabs 07/31/21 [Rx Last Taken 2 Days Ago ~07/19/21] atorvastatin 40 mg tablet 40 mg PO QHS cholesterol 06/20/22 [History Last Taken Unknown] glimepiride 4 mg tablet 4 mg PO DAILY DM 06/20/22 [History Last Taken Unknown] losartan 25 mg tablet 25 mg PO DAILY HTN 06/20/22 [History Last Taken Unknown] tadalafil 20 mg tablet 20 mg PO DAILY PRN PRN Erectile Dysfunction 06/20/22 [History Last Taken Unknown] oxycodone-acetaminophen 5 mg-325 mg tablet 1 - 2 tab PO Q6H PRN pain 3 days #14 tabs 12/03/22 [Rx Last Taken Unknown] Allergy/AdvReac Type Severity Reaction Status Date / Time No Known Allergies Allergy Verified 12/03/22 15:59 Family History Other Cancer Social History Smoking Status: Former smoker ROS ROS ED Constitutional Constitutional ED: Denies chills, fever(s) or sweats Eyes Eyes: Denies change in vision ENT ENT ED: Denies dysphagia or sore throat Cardiovascular Cardiovascular: Denies chest pain, leg edema, palpitations or racing heartbeat Respiratory/Chest Respiratory/Chest: Denies cough, dyspnea or dyspnea on exertion Gastrointestinal Gastrointestinal: Reports abdominal pain; Denies diarrhea, nausea or vomiting Genitourinary Genitourinary ED: Denies dysuria, hematuria or urinary frequency Musculoskeletal Musculoskeletal: Reports back pain; Denies extremity pain or neck pain Integumentary Denies rash or wounds Neurologic Neurologic: Denies headache(s), paresthesias or weakness EXAM Physical Exam Const Vital Signs: 12/03/22 15:59 12/03/22 18:02 12/03/22 18:03 Temperature 97 F L Temperature Source Temporal Pulse Rate 80 89 Respiratory Rate 16 16 Respiratory Pattern Normal Blood Pressure 166/85 H 155/89 H Blood Pressure Mean 112 111 Pulse Ox 96 99 Oxygen Delivery Method Room Air Room Air 12/03/22 20:00 Temperature Temperature Source Pulse Rate Respiratory Rate Respiratory Pattern Blood Pressure Blood Pressure Mean Pulse Ox 99 Oxygen Delivery Method Room Air Positive well nourished and well developed General Appearance ED: well developed and NAD HEENT Reports moist mucous membranes normocephalic and atraumatic Eyes PERRL, EOMs intact bilaterally and conjunctivae normal General Eye ED: Yes normal appearance of both eyes Neck no lymphadenopathy and supple General: Negative for tenderness Chest Wall Chest: Negative for tenderness Resp normal respiratory effort and normal air movement Effort and Inspection: symmetric chest movement; Negative for respiratory distress Cardio regular rate, regular rhythm and no murmurs Peripheral Pulses: pulses 2+ throughout GI normal to inspection, nondistended, normoactive bowel sounds GI Narrative: Tender right side abdomen upper and lower. no guarding or rebound. Negative Rovsing's Palpation: Negative for guarding or rebound tenderness present Back/Spine no CVA tenderness and no thoracic nor lumbar tenderness Back/Spine Narrative: No rash Extremity normal to inspection General Extremety ED: Negative for edema or tenderness General Extremity: Negative for edema Neuro oriented x3 and no sensory deficits noted Sensorium / Orientation: awake and alert Skin no rashes or lesions noted and no wounds MDM MDM MDM Narrative Medical decision making narrative: Interventions / MDM: Differential diagnosis: Kidney stone, pancreatitis, cholecystitis, appendicitis Diagnosis considered but do not suspect: My EKG interpretation: Sinus rate of 82, no ST or T wave changes Imaging independently reviewed and interpreted by myself: CT abdomen pelvis, acute appendicitis with dilated appendix with thickening and appendicolith no kidney stones, left renal cyst. Chest x-ray 1 view: No acute process External documents reviewed: N/A Test considered but not ordered:N/A ED course: Patient pain mid abdomen radiating to the right side to his back he states similar symptoms with a kidney stone. He denies urinary symptoms. Denies any nausea or vomiting. Work-up initially with abdominal labs, urine and CT scan is treated with fluids and Toradol. Results white count of 19 normal lipase liver enzymes creatinine 0.87. Urine with ketones with no in for action. CT scan results concerning for acute appendicitis. Patient reports he has not taken his aspirin recently. Re-evaluation: 1939: Persistent tenderness right side however no guarding or rebound, more on the right lower quadrant currently. Preop labs EKG chest x-ray ordered. Ordered for IV Zosyn. Surgeon paged for discussion. Discussed with surgeon who evaluated the patient and plans on taking taking to the OR. Disposition discussed with patient/family/significant other: Patient Case discussed with consulting clinician: Surgeon, Dr. Jackson Lab Data Attestation: I reviewed the patient's lab results. Labs: Laboratory Results - last 24 hr 12/03/22 12/03/22 12/03/22 17:59 17:59 17:59 WBC 19.0 H RBC 5.23 Hgb 14.6 Hct 45.4 MCV 86.8 MCH 27.9 MCHC 32.2 RDW Std Deviation 44.9 H RDW Coeff of Abe 14.0 Plt Count 253 MPV 11.9 Immature Gran % (Auto) 0.500 Neut % (Auto) 83.2 H Lymph % (Auto) 10.7 L E[place] % (Auto) 5.2 Eos % (Auto) 0.2 Baso % (Auto) 0.2 Absolute Neuts (auto) 15.8 H Absolute Lymphs (auto) 2.03 Nucleated RBC % 0 PT 13.1 INR 1.0 APTT 33.7 Sodium 138 Potassium 3.7 Chloride 103 Carbon Dioxide 27.0 Anion Gap 8 BUN 12 Creatinine 0.87 Estim Creat Clear Calc 103.67 Est GFR (MDRD) Af Amer 115 Est GFR (MDRD) Non-Af 95 BUN/Creatinine Ratio 13.8 Glucose 200 H Calcium 9.0 Total Bilirubin 0.40 Direct Bilirubin 0.12 AST 11 L ALT 15 L Alkaline Phosphatase 96 Total Protein 7.9 Albumin 4.0 Globulin 3.9 Lipase 103 Urine Color Urine Clarity Urine pH Ur Specific [place] Urine Protein Urine Glucose (UA) Urine Ketones Urine Occult Blood Urine Nitrite Urine Bilirubin Urine Urobilinogen Ur Leukocyte Esterase Urine RBC Urine WBC Ur Squamous Epith Cells Urine Bacteria Urine Mucus 12/03/22 18:20 WBC RBC Hgb Hct MCV MCH MCHC RDW Std Deviation RDW Coeff of Abe Plt Count MPV Immature Gran % (Auto) Neut % (Auto) Lymph % (Auto) [place] % (Auto) Eos % (Auto) Baso % (Auto) Absolute Neuts (auto) Absolute Lymphs (auto) Nucleated RBC % PT INR APTT Sodium Potassium Chloride Carbon Dioxide Anion Gap BUN Creatinine Estim Creat Clear Calc Est GFR (MDRD) Af Amer Est GFR (MDRD) Non-Af BUN/Creatinine Ratio Glucose Calcium Total Bilirubin Direct Bilirubin AST ALT Alkaline Phosphatase Total Protein Albumin Globulin Lipase Urine Color Yellow Urine Clarity Clear Urine pH 5.0 Ur Specific [place] 1.025 Urine Protein Negative Urine Glucose (UA) 50 H Urine Ketones 5 H Urine Occult Blood Negative Urine Nitrite Negative Urine Bilirubin Negative Urine Urobilinogen Normal Ur Leukocyte Esterase Negative Urine RBC 0 SEEN Urine WBC 0-5 SEEN Ur Squamous Epith Cells 0 SEEN Urine Bacteria 0 SEEN Urine Mucus 1+ Radiography Diagnostic Testing: Clinical Impression(s) from Imaging Studies Abdomen/Pelvis CT 12/03/22 19:00 IMPRESSION: (NOT LISTED IN ORDER OF SIGNIFICANCE) Gastritis. Acute appendicitis. Other findings as above. Electronically Signed: Deny Rose MD at 19:15 EST , ADDENDUM: 12/03/222004 IMPRESSION: (NOT LISTED IN ORDER OF SIGNIFICANCE) Gastritis. Acute appendicitis. Other findings as above. N.B. : The above Results were Read Back by Deny Rose MD to Elian Saucedo DO, and understanding confirmed on 12/03/2022 19:58:13 (ET). Electronically Signed: Dney Rose MD at 19:15 EST , Chest X-Ray 12/03/22 19:40 IMPRESSION: No radiographic evidence of acute cardiopulmonary disease. Electronically Signed: Deny Rose MD at 20:04 EST , EKG Initial EKG: Attestation: I personally reviewed and interpreted this EKG as follows: Comments: Sinus rate of 82, no ST or T wave changes Discharge Plan Dx/Rx/DC Orders Clinical Impression: Acute appendicitis, Right sided abdominal pain, Leukocytosis, Renal cyst, left, Gastric wall thickening Disposition Disposition: Acute Care Hospital [facility] Discharge Date/Time: 12/03/22 20:47
--- NOTE | 2022-12-03 19:00 | CT_ITS ---
We are attempting to reach an attending provider to discuss findings. An addendum with communication details will be sent when the communication is complete. STUDY: CT Abdomen And Pelvis W/O Contrast Injection 12/03/2022 7:13 PM REASON FOR EXAM: Male, 62 years old. Abdominal pain Kidney Stone Individualized dose optimization techniques were used for this CT. COMPARISON: None. TECHNIQUE: CT Abdomen And Pelvis W/O Contrast Injection FINDINGS: There are atherosclerotic calcifications of visualized coronary arteries. The visualized portions of the heart are within normal limits. Normal liver. Normal gallbladder and extrahepatic biliary system. Normal spleen. Normal pancreas. Normal bilateral adrenal glands. No acute findings of the right kidney. There is 26mm hypodensities in the left kidney. These are consistent for cysts. No follow up required. Focal wall thickening of the antrum of stomach. This can suggest a gastritis. Normal small intestine. Stool throughout the colon. There is a calcified appendicolith. There is a tubular, thick-walled appendix (10mm), consistent with acute appendicitis. There are calcifications of the abdominal aorta. This is consistent for atherosclerotic disease. There is NO abdominal aortic aneurysm. Vascular workup can be obtained based on clinical correlation. Normal inferior vena cava. Subcentimeter mesenteric lymph nodes. Normal urinary bladder. Normal abdominal wall. There are diffuse degenerative changes of the visualized lumbar spine. CT/Abdomen/Pelvis without Cont IMPRESSION: (NOT LISTED IN ORDER OF SIGNIFICANCE) Gastritis. Acute appendicitis. Other findings as above. Electronically Signed: Deny Rose MD at 19:15 EST ,
--- NOTE | 2022-12-03 19:36 | EKG12_ITS ---
Test Reason : DYSRHYTHMIA Blood Pressure : / mmHG Vent. Rate : 082 BPM Atrial Rate : 082 BPM P-R Int : 176 ms QRS Dur : 076 ms QT Int : 362 ms P-R-T Axes : 073 056 042 degrees QTc Int : 422 ms Normal sinus rhythm Normal ECG Confirmed by PATRICIA HARDIN, JORY ([id number]), supervising editor news reel HOSSEIN KULKARNI ([id number]) on 12/06/2022 1:54:41 PM Referred By: Saniya Jackson Confirmed By:JORY GOMEZ MD
--- NOTE | 2022-12-03 19:40 | RAD_ITS ---
EXAM: XR CHEST, 1 VIEW CLINICAL INDICATION: preop TECHNIQUE: Frontal view of the chest. This report was created using Helishop[employer] report generation technology. COMPARISON: 06.20.22 FINDINGS: LUNGS AND PLEURAL SPACES: Unremarkable. No consolidation or edema. No pneumothorax. No effusion. HEART: Unremarkable. Cardiac silhouette not enlarged. MEDIASTINUM: Central airways and mediastinal contour are unremarkable. BONES/JOINTS: Unremarkable. SOFT TISSUES: Unremarkable. RAD/Chest 1 View (Portable) IMPRESSION: No radiographic evidence of acute cardiopulmonary disease. Electronically Signed: Deny Rose MD at 20:04 [facility] ,
--- NOTE | 2022-12-03 20:32 | PCM.HP.STD ---
HPI - General General Date of Admission: 12/03/22 HPI Narrative RONALD BURRELL, is a 62 M who presents due to right-sided abdominal pain. Patient stated abdominal pain started at 8 PM last night. He has not had anything to eat since last night and only had some water. Patient states the pain is More towards the right lower quadrant. Continue to get worse. Patient CT abdomen pelvis which showed to have acute appendicitis. Patient white blood cells 19. Patient was started on Zosyn IV in the ER. [facility] Medical History Alcohol abuse COVID Diabetes Kidney stones Smoker Substance abuse Home Medications metformin 500 mg tablet,extended release 24 hr 500 mg PO BIDCM DM #0 tabs 07/31/21 [Rx Last Taken 2 Days Ago ~07/19/21] aspirin 81 mg tablet,delayed release 81 mg PO DAILY 06/20/22 [History Last Taken Unknown] atorvastatin 40 mg tablet 40 mg PO DAILY 06/20/22 [History Last Taken Unknown] doxycycline hyclate 100 mg capsule 100 mg PO BID 10 days #20 caps 06/20/22 [Rx Last Taken Unknown] glimepiride 4 mg tablet 4 mg PO DAILY 06/20/22 [History Last Taken Unknown] losartan 25 mg tablet 25 mg PO DAILY 06/20/22 [History Last Taken Unknown] tadalafil 20 mg tablet 20 mg PO DAILY PRN PRN Erectile Dysfunction 06/20/22 [History Last Taken Unknown] Allergy/AdvReac Type Severity Reaction Status Date / Time No Known Allergies Allergy Verified 12/03/22 15:59 Family History Other Cancer Social History Smoking Status: Former smoker Vital Signs Vital Signs Vital Signs: 12/03/22 15:59 12/03/22 18:02 12/03/22 18:03 Temperature 97 F L Temperature Source Temporal Pulse Rate 80 89 Respiratory Rate 16 16 Respiratory Pattern Normal Blood Pressure 166/85 H 155/89 H Blood Pressure Mean 112 111 Pulse Ox 96 99 Oxygen Delivery Method Room Air Room Air 12/03/22 20:00 Temperature Temperature Source Pulse Rate Respiratory Rate Respiratory Pattern Blood Pressure Blood Pressure Mean Pulse Ox 99 Oxygen Delivery Method Room Air Weight Weight: 186 lb 1.122 oz Body Mass Index (BMI) 23.8 Physical Exam Const alert, oriented x3 and no apparent distress HEENT normocephalic and head/scalp atraumatic Resp normal respiratory effort Cardio regular rate GI soft to palpation; Negative for non-distended Palpation: tender RLQ; Negative for guarding Extremity no clubbing, cyanosis or edema Neuro CN's II-XII intact bilaterally Psych mental status grossly normal Results Lab / Micro Data Result Diagrams: 12/03/22 17:59 12/03/22 17:59 Labs: Laboratory Results - last 24 hr 12/03/22 17:59: WBC 19.0 H, RBC 5.23, Hgb 14.6, Hct 45.4, MCV 86.8, MCH 27.9, MCHC 32.2, RDW Std Deviation 44.9 H, RDW Coeff of Abe 14.0, Plt Count 253, MPV 11.9, Immature Gran % (Auto) 0.500, Neut % (Auto) 83.2 H, Lymph % (Auto) 10.7 L, [place] % (Auto) 5.2, Eos % (Auto) 0.2, Baso % (Auto) 0.2, Absolute Neuts (auto) 15.8 H, Absolute Lymphs (auto) 2.03, Nucleated RBC % 0 12/03/22 17:59: Sodium 138, Potassium 3.7, Chloride 103, Carbon Dioxide 27.0, Anion Gap 8, BUN 12, Creatinine 0.87, Estim Creat Clear Calc 103.67, Est GFR (MDRD) Af Amer 115, Est GFR (MDRD) Non-Af 95, BUN/Creatinine Ratio 13.8, Glucose 200 H, Calcium 9.0, Total Bilirubin 0.40, Direct Bilirubin 0.12, AST 11 L, ALT 15 L, Alkaline Phosphatase 96, Total Protein 7.9, Albumin 4.0, Globulin 3.9, Lipase 103 12/03/22 18:20: Urine Color Yellow, Urine Clarity Clear, Urine pH 5.0, Ur Specific [place] 1.025, Urine Protein Negative, Urine Glucose (UA) 50 H, Urine Ketones 5 H, Urine Occult Blood Negative, Urine Nitrite Negative, Urine Bilirubin Negative, Urine Urobilinogen Normal, Ur Leukocyte Esterase Negative, Urine RBC 0 SEEN, Urine WBC 0-5 SEEN, Ur Squamous Epith Cells 0 SEEN, Urine Bacteria 0 SEEN, Urine Mucus 1+ Radiology Impression Abdomen/Pelvis CT 12/03/22 19:00 IMPRESSION: (NOT LISTED IN ORDER OF SIGNIFICANCE) Gastritis. Acute appendicitis. Other findings as above. Electronically Signed: Deny Rose MD at 19:15 EST , ADDENDUM: 12/03/222004 IMPRESSION: (NOT LISTED IN ORDER OF SIGNIFICANCE) Gastritis. Acute appendicitis. Other findings as above. N.B. : The above Results were Read Back by Deny Rose MD to Elian Saucedo DO, and understanding confirmed on 12/03/2022 19:58:13 (ET). Electronically Signed: Deny Rose MD at 19:15 EST , Chest X-Ray 12/03/22 19:40 IMPRESSION: No radiographic evidence of acute cardiopulmonary disease. Electronically Signed: Deny Rose MD at 20:04 EST , Assessment & Plan Assessment/Plan (1) Acute appendicitis: (2) Type 2 diabetes mellitus: PLAN: Plan 1. Discussed procedure laparoscopic appendectomy, possible open along with the risk but not limited to bleeding, infection/abscess, injury to another organ (small bowel, colon, etc.), adhesion, hernia at incision sites, and anesthesia. Patient no further question this time. Saniya Jackson M.D. Pager: [phone] [facility] [address] [place] [address], [address] [place] [id number] Office: [phone]
--- NOTE | 2022-12-03 21:20 | APP_PTH ---
PATIENT: RONALD BURRELL LOC: MS3 U#:[id number] AGE/SX: 62/M ROOM: WI312 RE12/03/[address]: Dr. Saniya Jackson MD : 1960 BED: 1 DIS: 12/04/2022 SPEC #: [id number] RECD: 12/04/22 09:40 STATUS: SAL GEOVANNI #: [id number] WERO: 12/03/22 21:[address]: Saniya Jackson DEPT: SURGICAL PATHOLOGY RECD BY: Nadya Marx ENTERED: 12/06/22 09:02 SP TYPE: APPENDIX OTHR DR: Dr. Latanya Moon MD Tissues: Appendix, NOS Procedures: Surgery Specimen Level III HEADER OPERATION: Laparoscopic appendectomy PRE-OP DIAGNOSIS: Acute appendicitis TISSUE SUBMITTED: Appendix MICROSCOPIC DIAGNOSIS Appendix, appendectomy: Acute appendicitis and periappendicitis. ELIZABETH:tony 12/07/2022 MICROSCOPIC DESCRIPTION Slides are reviewed. GROSS DESCRIPTION Received in fixative is one container labeled with the patient's name and designated appendix. The specimen consists of a C-shaped appendix measuring 9.9 cm in length and up to 1.5 cm in diameter. The attached periappendiceal adipose tissue measures up to 1 cm in width. The serosa is covered with flores, purulent exudate. No obvious perforation is identified. The lumen contains hemorrhagic fluid mixed with fecal material. No fecalith is identified. Ceramic Painter sections are submitted in two cassettes. / ELIZABETH:tony 12/06/2022 TC:2 CPT: 21452
[2022-12-03 21:34] LABS: Prothrombin Time (Protime)PT. 13.1 SECONDS (11.7-14.9)
[2022-12-03 21:35] LABS: Partial Thromboplast Time 33.7 Seconds (24.1-36.2)
[2022-12-03] MEDS: Bupiv/Epi 0.25% 30 ML Vial (21:44)
--- NOTE | 2022-12-03 21:48 | PCM.OPRPT ---
Report of Operation Date of Procedure: 12/03/22 Pre-Operative Diagnosis: Acute appendicitis Post-Operative Diagnosis: Acute necrotizing appendicitis Surgery/Procedure Performed:: Laparoscopic appendectomy Surgeon: Saniya Jackson Type of Anesthesia: General/Supplemental Anesthesiologist: Efe Wilkerson Special Medications: Zosyn IV in the ER for acute appendicitis Specimen's removed: Appendix Estimated Blood Loss (mL): < 10 cc Description of Procedure: Indications: 62-year-old male presented to the ER with new right lower quadrant pain starting today but abdominal pain started at 8 PM yesterday. On workup he was found to have acute appendicitis on CT and a leukocytosis of 19. Patient was started on antibiotics in the ER for acute appendicitis-Zosyn IV. Description of the procedure: The patient was placed on operating table in supine position. General anesthesia was induced. A timeout was completed verifying correct patient, procedure, position and special equipment prior to beginning procedure. Abdomen was prepped and draped in usual sterile fashion. Incision was made in the natural skin line above the umbilicus with a 15 blade scalpel. The fascia was elevated and incised. Entry into the peritoneum was confirmed visually and no bowel was noted in the vicinity of the incision. The [place]endo trocar was placed under direct vision. Abdomen insufflated with a pressure of 12-15 mmHg. Patient tolerated insertion well. The scope was inserted and the abdomen inspected. No injuries from initial trocar placement were noted. Minimal amount of fluid was seen in the right lower quadrant. An direct visualization 2 -5 mm trocars were placed one above the symphysis pubis and below the hairline and one in the left lower quadrant lateral to the rectus muscle. Care is taken to avoid injury to the bladder and inferior epigastric vessels. The table was placed in Trendelenburg position with the right side elevated. The appendix was grasped with atraumatic grasper and elevated. It was noted to be inflamed/necrotic. A window was developed in the mesoappendix at the point between the base of the appendix and the cecum. An endoscopic 45 mm linear cutting stapler blue load was then used to divide and staple the base of the appendix. Enseal was used to divide the mesoappendix. The appendix was withdrawn into the [place] trocar after being placed endoscopically retrieval bag. Appendix was sent to pathology. The appendiceal stump was then irrigated and hemostasis was assured. Fluid was suctioned no other pathology was identified. Secondary trochars were removed under direct visualization. No bleeding was noted trocar sites. The laparoscope withdrawn and the umbilical trocar removed. The abdomen was allowed to collapse. Local anesthesia of 20 mL of 0.5% Marcaine was used at the incision sites. The umbilical trocar site was closed with the [id number] 0 Vicryl suture. The skin was closed using sutures of 4-0 Monocryl and Steri-Strips. The patient was extubated. The patient tolerated the procedure well and was taken to the postanesthesia care unit in satisfactory condition. Complications none
--- NOTE | 2022-12-03 21:51 | DCINST_ITS ---
Discharge Instructions Diet Discharge Diet: Light diet - advance as tolerated Activity Discharge Activity: May Not Drive (while taking narcotic pain medications.) May shower in (days): 1 Lifting Restrictions: no lifting >20 lbs x 2 wks, no strenuous exercise for 4 wks Dressing / Incision Call your doctor if your incision/area has: Continuous Slow Oozing, Sudden Increased Bleeding, Increased Pain/ Swelling, Increased Redness, Foul Smelling Discharge and Swelling at the incision site Call your doctor if you observe: Fever of 101 or Higher Remove Dressing in: 2 days Cleanse incision/area with: Soap & Water Additional Dressing/Incision Instructions:: Steri-Strips will fall off in 7 to 10 days, if they do not fall off okay to remove after 10 days. Follow Up Care Please Follow Up With: Saniya Jackson MD When: Call the office for a follow-up appointment 2 weeks; after 5 PM and on the weekends call [phone] with any concerns. Test Results: Test results from this visit will be discussed in further detail at your follow- up appointment, if applicable. Discharge Plan Admission Admit Date/Time: 12/03/22 21:28 Attending Provider: Saniya Jackson Primary Care Provider: Latanya Moon Discharge Orders/Prescriptions Prescriptions: New oxycodone-acetaminophen 5-325 mg tablet 1 - 2 tab PO Q6H PRN (Reason: pain) 3 Days Qty: 14 0RF Continued metformin 500 MG tablet extended release 24 hr 500 mg PO BIDCM Qty: 0 0RF atorvastatin 40 mg tablet 40 mg PO DAILY Label Comments: Take 1 tablet by mouth once daily. glimepiride 4 mg tablet 4 mg PO DAILY Label Comments: Take 1 tablet by mouth daily with breakfast. losartan 25 mg tablet 25 mg PO DAILY Label Comments: Take 1 tablet by mouth once daily. tadalafil 20 mg tablet 20 mg PO DAILY PRN PRN (Reason: Erectile Dysfunction) Label Comments: Take by mouth. Take one(1) tablet per day as directed doxycycline hyclate 100 mg capsule 100 mg PO BID 10 Days Qty: 20 0RF Held aspirin 81 mg tablet,delayed release (DR/EC) 81 mg PO DAILY Hold Instructions: Resume on 12/05/22. Label Comments: Take 1 tablet by mouth once daily. Referrals / Follow Up: Latanya Moon MD [Primary Care Provider] - Disposition Disposition (needs filled in before D/C Order can be placed): Home, Self Care
[2022-12-03 22:30] LABS: Bedside Glucose 186 mg/dL (74-106)
[2022-12-03] MEDS: 0.9% Normal Saline 1,000 ML 120 ML IV (23:16)
[2022-12-04 01:15] VITALS: BP 154/80; PULSE 75; RESP 16; TEMP 37.3; O2SAT 93
[2022-12-04] MEDS: oxyCODONE 5 MG Tablet PO ×2 (01:30→03:09)
[2022-12-04] MEDS: Acetaminophen 325 MG Tablet 650 MG PO (01:31)
[2022-12-04 03:03] VITALS: BP 150/83; PULSE 80; RESP 16; TEMP 37.5; O2SAT 93
[2022-12-04] MEDS: Morphine 2 MG/ML Syringe IV (03:57)
[2022-12-04 06:03] VITALS: BP 131/73; PULSE 81; RESP 16; TEMP 36.7; O2SAT 93
[2022-12-04] MEDS: Insulin Lispro 100 UNIT/ML INSULN.PEN SC (06:15)
[2022-12-04] MEDS: 0.9% Normal Saline 1,000 ML 120 ML IV (06:17)
[2022-12-04 06:40] LABS: Bedside Glucose 212 mg/dL (74-106)
--- NOTE | 2022-12-04 07:26 | PN.SURG_ITS ---
Subjective Subjective Patient is doing well tolerating p.o., pain controlled Objective Data Objective Data Vital Signs: Vital Signs Temp Pulse Resp BP Pulse Ox O2 Del Method O2 Flow Rate 98.1 F 81 16 131/73 H 93 Room Air 4 12/04/22 06:03 12/04/22 06:03 12/04/22 06:03 12/04/22 06:03 12/04/22 06:03 12/04/22 06:03 12/03/22 21:56 Oxygen Flow Rate (L/min) 4 Oxygen Delivery Method Room Air Weight: 186 lb 1.122 oz Body Mass Index (BMI) 23.8 Intake & Output: Intake and Output for Last 24 Hours 12/02/22 12/03/22 12/04/22 23:59 23:59 23:59 Intake Total 1100 / 1100 1642 / 1642 Output Total 300 / 300 Balance 1100 / 1100 1342 / 1342 Lab / Micro Data Result Diagrams: 12/03/22 17:59 12/03/22 17:59 Labs: Laboratory Results - last 24 hr 12/03/22 17:59: WBC 19.0 H, RBC 5.23, Hgb 14.6, Hct 45.4, MCV 86.8, MCH 27.9, MCHC 32.2, RDW Std Deviation 44.9 H, RDW Coeff of Abe 14.0, Plt Count 253, MPV 11.9, Immature Gran % (Auto) 0.500, Neut % (Auto) 83.2 H, Lymph % (Auto) 10.7 L, [place]rell % (Auto) 5.2, Eos % (Auto) 0.2, Baso % (Auto) 0.2, Absolute Neuts (auto) 15.8 H, Absolute Lymphs (auto) 2.03, Nucleated RBC % 0 12/03/22 17:59: Sodium 138, Potassium 3.7, Chloride 103, Carbon Dioxide 27.0, Anion Gap 8, BUN 12, Creatinine 0.87, Estim Creat Clear Calc 103.67, Est GFR (MDRD) Af Amer 115, Est GFR (MDRD) Non-Af 95, BUN/Creatinine Ratio 13.8, Glucose 200 H, Calcium 9.0, Total Bilirubin 0.40, Direct Bilirubin 0.12, AST 11 L, ALT 15 L, Alkaline Phosphatase 96, Total Protein 7.9, Albumin 4.0, Globulin 3.9, Lip ase 103 12/03/22 17:59: PT 13.1, INR 1.0, APTT 33.7 12/03/22 18:20: Urine Color Yellow, Urine Clarity Clear, Urine pH 5.0, Ur Specific [place] 1.025, Urine Protein Negative, Urine Glucose (UA) 50 H, Urine Ketones 5 H, Urine Occult Blood Negative, Urine Nitrite Negative, Urine Bilirubin Negative, Urine Urobilinogen Normal, Ur Leukocyte Esterase Negative, Urine RBC 0 SEEN, Urine WBC 0-5 SEEN, Ur Squamous Epith Cells 0 SEEN, Urine Bacteria 0 SEEN, Urine Mucus 1+ 12/03/22 22:12: POC Glucose 186 H 12/04/22 06:12: POC Glucose 212 H Radiography Diagnostic Testing: Radiology Impression Abdomen/Pelvis CT 12/03/22 19:00 IMPRESSION: (NOT LISTED IN ORDER OF SIGNIFICANCE) Gastritis. Acute appendicitis. Other findings as above. Electronically Signed: Deny Rose MD at 19:15 EST , ADDENDUM: 12/03/222004 IMPRESSION: (NOT LISTED IN ORDER OF SIGNIFICANCE) Gastritis. Acute appendicitis. Other findings as above. N.B. : The above Results were Read Back by Deny Rose MD to Elian Saucedo DO, and understanding confirmed on 12/03/2022 19:58:13 (ET). Electronically Signed: Deny Rose MD at 19:15 EST , Chest X-Ray 12/03/22 19:40 IMPRESSION: No radiographic evidence of acute cardiopulmonary disease. Electronically Signed: Deny Rose MD at 20:04 EST , Physical Exam Resp normal respiratory effort Cardio regular rate GI GI Narrative: Abdomen: Soft, nondistended, tender near incision's dressed clean dry and intact, no peritoneal signs Assessment & Plan Assessment/Plan (1) S/P laparoscopic appendectomy: (2) Type 2 diabetes mellitus: PLAN: Plan Patient is doing well tolerating diet and pain controlled. Incisions healing well. Okay to DC home follow-up in office in about 2 weeks. Saniya Jackson M.D. Pager: [phone] [facility] [address] [place] [address], [address] [place] [id number] Office: [phone]
[2022-12-04] MEDS: Glimepiride 4 MG Tablet PO (07:33)
[2022-12-04] MEDS: Losartan Potassium 25 MG Tablet PO (07:33)
[2022-12-04 07:37] VITALS: BP 137/88; PULSE 87; RESP 16; TEMP 37.1; O2SAT 95
== END 2022-12-04 10:17 | disposition home or self-care (01) ==
LOC: ED 19:45 → SDC 20:30 → AC 20:30 → SDC 21:28 → MS3 21:28
PROVIDERS: Admitting Provider Surgery; Emergency Provider Emergency Medicine; PCP Internal Medicine; Referring Provider Surgery; Visit Provider Surgery
PROC: 0DTJ4ZZ Resection of Appendix, Percutaneous Endoscopic Approach (ICD-10-PCS; CPT 44970; principal; 2022-12-03 21:00)
DX: K35.80 Unspecified acute appendicitis (principal); E11.9 Type 2 diabetes mellitus without complications; Z86.16 Personal history of COVID-19; Z79.84 Long term (current) use of oral hypoglycemic drugs; Z79.82 Long term (current) use of aspirin; N28.1 Cyst of kidney, acquired; Z87.891 Personal history of nicotine dependence; I10 Essential (primary) hypertension; Z79.899 Other long term (current) drug therapy
CPT/HCPCS: 44970; 00840; 71045; 74176; 80048; 80076; 81001; 82962; 83690; 85025; 85610; 85730; 87426; 88304; 93005; 96361; 96374; 96375; 99282; J7030; J7120; A4216; C1760

== ENCOUNTER 2023-09-12 11:39 | Emergency (ER) | payer BC, SELFPAY ==
[2023-09-12 11:40] VITALS: BP 186/95; PULSE 69; RESP 15; TEMP 36.1; O2SAT 98; BMI 24.3
== END 2023-09-12 13:32 | disposition left against medical advice (07) ==
LOC: ED 13:36
PROVIDERS: PCP Internal Medicine
DX: Z53.21 Procedure and treatment not carried out due to patient leaving prior to being seen by health care provider (principal)